=== PATIENT | female | born 1955 | race Caucasian/White ===

== ENCOUNTER 2017-04-10 16:12 | Inpatient (IN) | payer OTHER, BC ==
--- NOTE | 2017-04-10 17:55 | EDPHY ---
H & P Stated Complaint: MRI today L hip;sent to ED re:abnl results.Injury 01/2017 Time Seen by Provider: 04/10/17 16:57 HPI/ROS: CHIEF COMPLAINT: left hip pain HISTORY OF PRESENT ILLNESS: 61-year-old female presents emergency department, sent here after an MRI of her left hip at [facility]. Patient had a worker' s compensation fall at work on February 04 onto her right side, she had right hip pain at that time which has resolved, 1 week after this fall she developed left hip pain which has been worsening since this time. Patient has seen her orthopedist, worker's compensation doctors and worker's compensation orthopedist , she had 1 MRI of her left hip which was read as a stress fracture, she has a another MRI done today and was told to come directly to the emergency department as they told her she had a fracture. Patient reports her left hip pain is not worsening if anything it is mildly improving. She states pain is worse with weight-bearing. She denies any new numbness or tingling in her legs aside from her normal peripheral neuropathy. She denies fevers. REVIEW OF SYSTEMS: A comprehensive 10 point review of systems is otherwise negative aside from elements mentioned in the history of present illness. Source: Patient Exam Limitations: No limitations - Personal History Current Tetanus Diphtheria and Acellular Pertussis (TDAP): Yes Tetanus Vaccine Date: more then 10 y - Medical/Surgical History Hx Asthma: Yes Hx Chronic Respiratory Disease: No Hx Diabetes: Yes Hx Cardiac Disease: No Hx Renal Disease: No Hx Cirrhosis: No Hx Alcoholism: No Hx HIV/AIDS: No Hx Splenectomy or Spleen Trauma: No Other PMH: HTN, high cholesterol, sleep apnea w/CPAP, asthma, DM, hysterectomy. TKR - Social History Smoking Status: Never smoked - Physical Exam Exam: Physical Exam Gen: Alert and Oriented, NAD HEENT: PERRL, moist mucous membranes NECK: no meningismus CV: regular rate and regular rhythm PULM: CTAB, no wheezes ABDOMEN: soft, non tender to palpation, BS present BACK: No CVA tenderness NEURO: Neurologically grossly intact MSK: Left hip with decreased range of motion due to pain, no leg shortening, 2 + pedal pulses, sensation intact to light touch SKIN: no rash or break in skin on exposed skin PSYCH: answers questions appropriately. Constitutional: Initial Vital Signs Temperature (C) 37.1 C 06/16/17 16:20 Heart Rate 84 04/10/17 16:20 Respiratory Rate 18 04/10/17 16:20 Blood Pressure 151/90 H 04/10/17 16:20 O2 Sat (%) 96 04/10/17 16:20 O2 Delivery Mode Room Air Allergies/Adverse Reactions: cephalexin [Cephalexin] Allergy (Mild, Verified 04/10/17 16:30) erythema multiforme hydrochlorothiazide Allergy (Mild, Verified 04/10/17 16:30) Rash Thiazides Allergy (Verified 04/10/17 16:13) diazides Allergy (Uncoded 01/20/11 17:01) Home Medications: Medication Instructions Recorded Acetaminophen [Tylenol ES 500 mg 1,000 mg PO QID PRN 04/10/17 (*)] Albuterol [Proventil Inhaler HFA 1 - 2 puffs IH Q4H PRN 04/10/17 (*)] Aspirin EC [Aspirin EC 81 mg (*)] 81 mg PO DAILY 04/10/17 Atenolol [Tenormin 100 mg (*)] 100 mg PO HS 04/10/17 Calcium Carbonate [Tums 500MG (*)] 500 mg PO TID PRN 04/10/17 Cetirizine [ZyrTEC 10 mg (*)] 10 mg PO DAILY PRN 04/10/17 Diclofenac Sodium [Voltaren Gel 4 gm TP QID PRN 04/10/17 (*)] Docusate Sodium [Colace Clear] 100 mg PO BID 04/10/17 Eflornithine HCl [Vaniqa] 1 gm TP BID 04/10/17 FLUTICASONE/SALMETEROL [ADVAIR HFA 1 puffs IH BID 04/10/17 230-21 MCG INHALER] Famotidine [Pepcid] 40 mg PO DAILY PRN 04/10/17 Fish Oil/Dha/Epa [Fish Oil 1,200 1 each PO BID 04/10/17 mg Fish Oil] Furosemide [Lasix 40 MG (*)] 40 mg PO DAILY 04/10/17 Gemfibrozil [Lopid 600 MG (*)] 600 mg PO BIDAC 04/10/17 Herbals/Supplements -Info Only 1 ea PO DAILY 04/10/17 Hydralazine HCl [Apresoline 100 mg] 100 mg PO TID 04/10/17 LORazepam [Ativan (*)] 0.25 - 0.5 mg PO HS PRN 04/10/17 Lisinopril [Zestril 40 mg (*)] 40 mg PO DAILY 04/10/17 Montelukast Sodium [Singulair 10 10 mg PO HS 04/10/17 mg (*)] Multivitamins [Multivitamin (*)] 1 each PO DAILY 04/10/17 Simvastatin [Zocor] 20 mg PO HS 04/10/17 Terazosin HCl 10 mg PO HS 04/10/17 Vitamin B Complex [B Complex] 1 each PO DAILY 04/10/17 metFORMIN HCL [Metformin HCl] 1,000 mg PO BID 04/10/17 oxyCODONE IR [Oxycodone Ir (*)] 5 - 10 mg PO DAILY PRN 04/10/17 traMADol [Ultram 50 mg (*)] 100 mg PO QID 04/10/17 Medical Decision Making - Diagnostics Imaging Results: Imaging Impressions Hip X-Ray 04/10/17 18:29 Impression: Proximal left femur stress fracture is not visible on radiographs. Comment: The case was discussed with Dr. Robin Hester. Imaging: Discussed imaging studies w/ body recall instructor Radiologist, I viewed and interpreted images myself ED Course/Re-evaluation: MRI report from [facility] shows an impression of incomplete nondisplaced left intertrochanteric proximal femoral fracture with adjacent bone marrow and soft tissue edema. I have spoken with Dr. Lewis who is on-call for Orthopedics, he has reviewed this MRI and requested plain films. He is recommending nonweightbearing. The patient is unsteady on her feet and cannot use crutches, she is stairs in her house. The patient will be admitted to Hospital Medicine for PT/OT and likely rehab placement. Ortho will consult and see the patient. Differential Diagnosis: Diagnosis considered but not limited to fracture, stress fracture, muscle sprain , strain Departure - Departure Disposition: [facility] Inpatient Acute Clinical Impression: Fracture of proximal end of femur Qualifiers: Encounter type: initial encounter Fracture type: closed Laterality: left Qualified Code(s): S72.002A - Fracture of unspecified part of neck of left femur , initial encounter for closed fracture Condition: Good
[2017-04-10] MEDS ORDERED: CETIRIZINE 10 MG TAB PO PRN (20:41)
[2017-04-10] MEDS ORDERED: ALBUTEROL 60 PUFFS/8 GM MDI IH PRN ×2 (20:41→20:43)
[2017-04-10] MEDS ORDERED: FAMOTIDINE 40 MG PO PRN (20:41)
[2017-04-10] MEDS ORDERED: CALCIUM CARBONATE 500 MG CHEWABLE TAB PO PRN (20:41)
[2017-04-10] MEDS ORDERED: DICLOFENAC SODIUM TP PRN ×2 (20:41→20:58)
[2017-04-10] MEDS ORDERED: LORazepam 0.5 MG TAB PO PRN (20:41)
[2017-04-10] MEDS ORDERED: oxyCODONE IR 5 MG TAB PO PRN (20:43)
[2017-04-10] MEDS ORDERED: ONDANSETRON DISINTEGRATING 4 MG TAB PO PRN (20:43)
[2017-04-10] MEDS ORDERED: ONDANSETRON 4 MG/2 ML VIAL IVP PRN (20:43)
--- NOTE | 2017-04-10 20:51 | PDGENHP ---
History and Physical - Chief Complaint told to come to ER bc of MRI - History of Present Illness 61 yo F with hx of osteoarthritis and fall in January that occurred at work and had residual right hip pain that then progressed to left hip pain. The left hip pain began about 1 week after the fall and at that time an MRI revealed a stress fracture of the left intertrochanteric femur. 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 Pain continued to increase and she was sent for another MRI by Dr. Chowdary and when that was read, the radiologist at [facility] instructed her to come straight to the ER. MRI was read as now incomplete nondisplaced intertrochanteric proximal femur fracture and plan would be for her to be completely NWB on that extremity. Patient feels this will be impossible given her chronic knee issues and her right hip pain, she feels she is going to be unable to care for herself at home and will need to be placed in a rehab facility. History Information - Allergies/Home Medication List Allergies/Adverse Reactions: cephalexin [Cephalexin] Allergy (Mild, Verified 04/10/17 16:30) erythema multiforme hydrochlorothiazide Allergy (Mild, Verified 04/10/17 16:30) Rash Thiazides Allergy (Verified 04/10/17 16:13) diazides Allergy (Uncoded 01/20/11 17:01) Home Medications: Acetaminophen [Tylenol ES 500 mg (*)] 1,000 mg PO QID PRN 04/10/17 [Last Taken 04/10/17 14:30 2 TABS] Albuterol [Proventil Inhaler HFA (*)] 1 - 2 puffs IH Q4H PRN 04/10/17 [Last Taken Unknown] Aspirin EC [Aspirin EC 81 mg (*)] 81 mg PO DAILY 04/10/17 [Last Taken 04/10/17] Atenolol [Tenormin 100 mg (*)] 100 mg PO HS 04/10/17 [Last Taken 04/09/17] Calcium Carbonate [Tums 500MG (*)] 500 mg PO TID PRN 04/10/17 [Last Taken Unknown] Cetirizine [ZyrTEC 10 mg (*)] 10 mg PO DAILY PRN 04/10/17 [Last Taken Unknown] Diclofenac Sodium [Voltaren Gel (*)] 4 gm TP QID PRN 04/10/17 [Last Taken Unknown] Docusate Sodium [Colace Clear] 100 mg PO BID 04/10/17 [Last Taken 04/10/17 2 CAPS] Eflornithine HCl [Vaniqa] 1 gm TP BID 04/10/17 [Last Taken Unknown] FLUTICASONE/SALMETEROL [ADVAIR HFA 230-21 MCG INHALER] 1 puffs IH BID 04/10/17 [ Last Taken Unknown] Famotidine [Pepcid] 40 mg PO DAILY PRN 04/10/17 [Last Taken Unknown] Fish Oil/Dha/Epa [Fish Oil 1,200 mg Fish Oil] 1 each PO BID 04/10/17 [Last Taken Unknown] Furosemide [Lasix 40 MG (*)] 40 mg PO DAILY 04/10/17 [Last Taken 04/10/17] Gemfibrozil [Lopid 600 MG (*)] 600 mg PO BIDAC 04/10/17 [Last Taken 04/10/17 1 TAB] Herbals/Supplements -Info Only 1 ea PO DAILY 04/10/17 [Last Taken Unknown] Hydralazine HCl [Apresoline 100 mg] 100 mg PO TID 04/10/17 [Last Taken 04/10/17 2 TABS] LORazepam [Ativan (*)] 0.25 - 0.5 mg PO HS PRN 04/10/17 [Last Taken Unknown] Lisinopril [Zestril 40 mg (*)] 40 mg PO DAILY 04/10/17 [Last Taken 04/10/17] Montelukast Sodium [Singulair 10 mg (*)] 10 mg PO HS 04/10/17 [Last Taken ] Multivitamins [Multivitamin (*)] 1 each PO DAILY 04/10/17 [Last Taken Unknown] Simvastatin [Zocor] 20 mg PO HS 04/10/17 [Last Taken 04/09/17] Terazosin HCl 10 mg PO HS 04/10/17 [Last Taken 04/09/17] Vitamin B Complex [B Complex] 1 each PO DAILY 04/10/17 [Last Taken Unknown] metFORMIN HCL [Metformin HCl] 1,000 mg PO BID 04/10/17 [Last Taken 04/10/17 2 TABS] oxyCODONE IR [Oxycodone Ir (*)] 5 - 10 mg PO DAILY PRN 04/10/17 [Last Taken Unknown] traMADol [Ultram 50 mg (*)] 100 mg PO QID 04/10/17 [Last Taken 04/10/17 14:30 2 TABS] I have personally reviewed and updated: family history, medical history, social history, surgical history - Past Medical History asthma, diabetes type 2, hypertension, hyperlipidemia Additional medical history: osteoarthritis. chronic pain - Surgical History Additional surgical history: right ORIF. tonsillectomy. ARABELLA. left knee scope - Family History Positive for: CAD - Social History Smoking Status: Never smoked Alcohol Use: None Drug Use: None Additional social history: lives alone, works as a pharmacist at [employer] Review of Systems ROS: 10pt was reviewed & negative except for what was stated in HPI & below Physical Exam Temp Pulse Resp BP Pulse Ox 37.1 C 84 18 151/90 H 96 04/10/17 16:20 04/10/17 16:20 04/10/17 16:20 04/10/17 16:20 04/10/17 16:20 Constitutional: obese, uncomfortable Eyes: PERRL, anicteric sclera Ears, Nose, Mouth, Throat: moist mucous membranes Cardiovascular: regular rate and rhythym, no murmur, rub, or gallop, No edema Respiratory: no respiratory distress, no rales or rhonchi, clear to auscultation Gastrointestinal: normoactive bowel sounds, soft, non-tender abdomen Skin: warm, normal color Musculoskeletal: full muscle strength Neurologic: AAOx3 Psychiatric: interacting appropriately, not anxious, flat affect Lab Data & Imaging Review Visualized and Interpreted imaging results: Yes Interpretation: hip xray shows no discernible fracture Assessment & Plan Assessment: Fracture of proximal end of femur (Acute) 61 yo F with hx of DM, HTN and OA presenting 2 months s/p fall with nondisplaced left intertrochanteric femur fx # left femur fx: this is not visible on plain films here but noted on MRI at [facility], non operative injury but patient should be NWB on the left lower extremity per ortho. Patient does not feel she will be able to care for herself at home with this injury, but on evaluation in ER, she is able to independently transfer to a wheelchair quite easily and ? if she could not dc home in a wheelchair rather than require SNF placement. At this point, will bring in for overnight observation and pt/ot eval. Dr. Lewis with ortho has been consulted and will evaluate patient while she is in house. # fall: this occurred at work and is a workman's comp injury, fall was 2 months ago # osteoarthritis: with chronic knee pain as a result limiting her mobility, as above # DM: continue metformin # htn: will continue op meds including lisinopril, lasix, atenolol, hydralazine # hld: continue gemfibrozil # RAD: continue advair, singulair, albuterol--no e/o acute exacerbation # observation status, may be able to dc with wheelchair and home health Patient new to my care. Old records reviewed and summarized as above. Care plan reviewed with ER physician as above.
[2017-04-10] MEDS ORDERED: NON-FORMULARY NEW DRUG (Simvastatin [Zocor] 20 MG) PO SCH (21:00)
[2017-04-10] MEDS ORDERED: NON-FORMULARY NEW DRUG (Fish Oil/Dha/Epa [Fish Oil 1,200 Mg Fish Oil] 1 EACH) PO SCH (21:00)
[2017-04-10] MEDS ORDERED: EFLORNITHINE HCL TP SCH (21:00)
[2017-04-10] MEDS ORDERED: NON-FORMULARY NEW DRUG (Fluticasone/Salmeterol [Advair Hfa 230-21 Mcg Inhaler] 1 PUFFS) IH SCH (21:00)
[2017-04-10] MEDS ORDERED: FAMOTIDINE 20 MG TAB PO PRN (21:00)
[2017-04-10] MEDS ORDERED: TERAZOSIN HCL 10 MG PO SCH (21:00)
[2017-04-10] MEDS ORDERED: DOCUSATE SODIUM 100 MG PO SCH (21:00)
[2017-04-10] MEDS: MONTELUKAST SODIUM 10 MG TAB PO SCH (21:54)
[2017-04-10] MEDS: traMADol 50 MG TAB PO SCH (21:54)
[2017-04-10] MEDS: ATENOLOL 100 MG TAB PO SCH (21:55)
[2017-04-10] MEDS: ACETAMINOPHEN 500 MG TAB PO PRN (21:55)
[2017-04-10] MEDS: metFORMIN HCL 500 MG TAB PO SCH (21:55)
[2017-04-10] MEDS: DOCUSATE SODIUM 100 MG CAP PO SCH (21:56)
[2017-04-10] MEDS ORDERED: HYDRALAZINE HCL 100 MG PO SCH (22:00)
[2017-04-10] MEDS: TERAZOSIN HCL 5 MG CAP PO SCH (22:02)
[2017-04-10] MEDS: EFLORNITHINE HCL TP SCH (22:31)
[2017-04-11] MEDS: traMADol 50 MG TAB PO SCH ×4 (06:00→20:16)
--- NOTE | 2017-04-11 07:46 | PDCONSULT ---
Fish Hatchery Supervisor Note: Orthopaedic Consultation DOS: 04/11/2017 CC: Left hip hurts HPI: 61y F pharmacist w DM2, obesity p/w Left hip pain and MRI findings consistent with incomplete stress fracture. The patient fell in January 2017 and had Right hip pain. After 1.5 weeks or so, the patient developed gradually increasing Left hip pain that started in her groin area and spread distally further down the hip. An initial MRI diagnsosi of stress fracture was made and her L knee arthroplasty surgeon Dr. Chowdary placed her on 25% weightbearing restrictions. Unfortunately, the patient says that her ability to comply with the restriction was "not well". She states she put more than that amount of weight on the leg routinely -including in the bathtub (doesn't use her shower chair), going up the stairs at home, and walking from her car in the [employer] lot to her desk (less than one block). She states that she was unsuccessful in coordinating a disabled placard for parking. She also complains of some Right wrist pain using her walker and of putting more weight on her Right knee which she says has [id number] arthritis like her left knee did. She had a Left TKA last year which was complicated by a patella tendon tear and an extension lag that she has not yet overcome with PT. She was sent to a [facility] comp physician for ongoing care of her hip, she says. We were asked to consult on this patient by the ED (Dr. Shoemaker) and see her on the inpatient floor. PMHx: DM2, Asthma, Sleep apnea, HTN, HLD PSHx: Includes tonsillectomy, AARBELLA, Left total knee arthroplasty Meds: Reviewed. 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 Non smoker, denies EtOH/PSA PE: AxOx3. Hearing intact to spoken word. LLE: no pain with log roll nor PROM hip. Single leg raise not painful. TTP in groin and along proximal femur. Diffuse quadriceps tenderness, pt attributes to knee recovery being incomplete. L knee extension leg ~20 degrees. Passive full extension of knee to 0 degrees. flexion to ~90 degrees. SILT S/S/SP/DP/T. 2+ DP and PT pulse. 5/5 EHL/FHL/TA/GS RLE: no pain with log roll. No TTP. AROM hip to 90 flexion without pain. WWP. grossly sensate to touch IMAGING: radiographs of Left hip visualized and reviewed. No displaced IT fracture, but MRI imaging show IT and substroch signal changes and possible incomplete cortical disruption of the shaft/intertrochanteric region. Degenerative changes of both hip joints, Right worse than left. AP: 61y F pharmacist with DM2, obesity p/w ongoing L hip incomplete stress fracture with incomplete adherence to 25% NWB instructions - Recommend Nonweightbearing status to Left leg. We discussed that the patient may have a better chance of clearly knowing when she is inadvertently "cheating ' since NWB requires the foot off the ground. With her body habitus, the fracture may need complete NWB to improve at this point. We did discuss the higher risks of completing the fracture with additional falls or stress fracture progression. - Recommend PT work with patient on alternative assist strategies to maximize likelihood of adherence. For example, a platform walker where the patient can transmit weight through her Right arm and not the wrist may help further. - If she is sent back to work, a temporary handicap parking placard would help reduce ambulatory distance - When confronted with the multiple aspects of noncompliance, the patient was not particularly distressed and complained about being sent back to work. We discussed the risks of fracture progression that could require hip surgery and would further delay definitive treatment for her right knee as well as complicating any future hip issues. We discussed that work comp patients often do clinically poorer while having healthier financial situations, and I encouraged her to anderson that trend. - She is welcome to follow up with me in a couple weeks to check on her status but she can certainly choose to follow up with Dr. Chowdary who originally was treating this fracture, or she can be treated by her [place] work comp physician. We discussed that her Work comp physician and/or Dr. Chowdary may have a slightly different approach to this problem, and that these recommendations for NWB LLE were what were needed in my opinion.
[2017-04-11] MEDS ORDERED: VITAMIN B COMPLEX 1 EA CAP/TAB PO SCH (09:00)
[2017-04-11] MEDS: SALMETEROL IH SCH (09:50)
[2017-04-11] MEDS: FLUTICASONE IH SCH (09:50)
--- NOTE | 2017-04-11 10:08 | HOSPPROG ---
Hospitalist Progress Note Assessment/Plan: Patient is a 61 y/o female who had hip pain for approximately 1 week. She had an MRI that revealed a stress fracture of the left intertochanteric femur. Was instructed to be 25% NWB but difficult due to needing to walk for her job. # left femur fx: -Evaluated by Dr Lewis/ recommendation is NWB. -patient is concerned she can't care for herself at home -PT and OT to see/ awaiting their recommendations #HTN -lisinopril, Lasix, atenolol, and hydralazine -bp stable # fall: this occurred at work and is a workman's comp injury - fall was 2 months ago # osteoarthritis: with chronic knee pain as a result limiting her mobility, as above # DM: continue metformin # hld: continue gemfibrozil # RAD: continue Advair, Singulair, albuterol--no e/o acute exacerbation # Plan: PT and OT to see today at 11:00/ CM looking at possible SNF if indicated. Subjective: Marianna has no c/o pain while in the chair. Says she is unable to care for herself at home due to being NWB/she lives alone. Objective: Vital Signs Temp Pulse Resp BP Pulse Ox 36.4 C 69 16 130/81 H 89 L 04/11/17 08:40 04/11/17 08:40 04/11/17 08:40 04/11/17 08:40 04/11/17 08:40 04/10/17 04/11/17 04/12/17 05:59 05:59 05:59 Output Total 450 Balance -450 - Physical Exam Constitutional: no apparent distress, appears nourished Eyes: PERRL Ears, Nose, Mouth, Throat: hearing normal Cardiovascular: regular rate and rhythym Respiratory: no respiratory distress Gastrointestinal: normoactive bowel sounds Skin: warm, normal color Neurologic: AAOx3 Psychiatric: interacting appropriately, not anxious ICD10 Worksheet Patient Problems: Problems Problem Status Onset Fracture of proximal end of femur Acute Osteoarthritis of knees, bilateral Acute
[2017-04-11] MEDS: LISINOPRIL 40 MG TAB PO SCH (10:18)
[2017-04-11] MEDS: ASPIRIN EC 81 MG TAB PO SCH (10:18)
[2017-04-11] MEDS: MULTIVITAMINS 1 EACH TAB PO SCH (10:19)
[2017-04-11] MEDS: FUROSEMIDE 40 MG TAB PO SCH (10:19)
[2017-04-11] MEDS: GEMFIBROZIL 600 MG TAB PO SCH ×2 (10:19→18:03)
[2017-04-11] MEDS: VITAMIN B COMPLEX 1 EA CAP/TAB PO SCH (10:19)
[2017-04-11] MEDS: OMEGA-3 FATTY ACIDS 1,000 MG CAP PO SCH ×2 (10:19→20:19)
[2017-04-11] MEDS: metFORMIN HCL 500 MG TAB PO SCH ×2 (10:19→20:16)
[2017-04-11] MEDS: DOCUSATE SODIUM 100 MG CAP PO SCH ×2 (10:19→20:19)
[2017-04-11] MEDS: ENOXAPARIN 40 MG/0.4 ML SYR SC SCH (10:19)
[2017-04-11] MEDS: EFLORNITHINE HCL TP SCH ×2 (10:20→22:39)
[2017-04-11] MEDS: ACETAMINOPHEN 325 MG TAB PO PRN ×2 (10:24→20:19)
[2017-04-11] MEDS: ACETAMINOPHEN 500 MG TAB PO PRN (15:51)
[2017-04-11] MEDS: TERAZOSIN HCL 5 MG CAP PO SCH (20:16)
[2017-04-11] MEDS: ATORVASTATIN CALCIUM 10 MG TAB PO SCH (20:17)
[2017-04-11] MEDS: ATENOLOL 100 MG TAB PO SCH (20:17)
[2017-04-11] MEDS: MONTELUKAST SODIUM 10 MG TAB PO SCH (20:19)
[2017-04-12] MEDS: FLUTICASONE IH SCH ×3 (04:30→22:08)
[2017-04-12] MEDS: SALMETEROL IH SCH ×3 (04:30→22:08)
[2017-04-12] MEDS: traMADol 50 MG TAB PO SCH ×4 (06:19→20:44)
[2017-04-12] MEDS: ACETAMINOPHEN 500 MG TAB PO PRN ×2 (06:19→20:45)
--- NOTE | 2017-04-12 09:55 | HOSPPROG ---
Hospitalist Progress Note Assessment/Plan: Patient is a 61 y/o female who had hip pain for approximately 1 week. She had an MRI that revealed a stress fracture of the left intertochanteric femur. Was instructed to be 25% NWB but difficult due to needing to walk for her job. # left femur fx: -Evaluated by Dr Lewis/ recommendation is NWB. -patient is concerned she can't care for herself at home -PT and OT recommended SNF #HTN -lisinopril, Lasix, atenolol, and hydralazine -bp stable # fall: this occurred at work and is a workman's comp injury - fall was 2 months ago # osteoarthritis: with chronic knee pain as a result limiting her mobility, as above # DM: continue metformin # hld: continue gemfibrozil # RAD: continue Advair, Singulair, albuterol--no e/o acute exacerbation # Plan:CM looking at for placement/ hopefully, Thursday Subjective: Marianna has no c/o pain at rest. Objective: Vital Signs Temp Pulse Resp BP Pulse Ox 36.4 C 75 16 113/68 91 L 04/12/17 08:00 04/12/17 09:35 04/12/17 09:35 04/12/17 08:00 04/12/17 09:35 04/11/17 04/12/17 04/13/17 05:59 05:59 05:59 Intake Total 725 Output Total 200 Balance 525 - Physical Exam Constitutional: not in pain, obese Eyes: PERRL Ears, Nose, Mouth, Throat: hearing normal Cardiovascular: regular rate and rhythym Respiratory: no respiratory distress Gastrointestinal: normoactive bowel sounds Skin: warm, normal color Musculoskeletal: generalized weakness Neurologic: AAOx3 Psychiatric: interacting appropriately ICD10 Worksheet Patient Problems: Problems Problem Status Onset Fracture of proximal end of femur Acute Osteoarthritis of knees, bilateral Acute
[2017-04-12] MEDS: DOCUSATE SODIUM 100 MG CAP PO SCH ×2 (10:28→20:45)
[2017-04-12] MEDS: ASPIRIN EC 81 MG TAB PO SCH (10:28)
[2017-04-12] MEDS: OMEGA-3 FATTY ACIDS 1,000 MG CAP PO SCH ×2 (10:28→20:44)
[2017-04-12] MEDS: FUROSEMIDE 40 MG TAB PO SCH (10:28)
[2017-04-12] MEDS: LISINOPRIL 40 MG TAB PO SCH (10:28)
[2017-04-12] MEDS: GEMFIBROZIL 600 MG TAB PO SCH ×2 (10:28→17:18)
[2017-04-12] MEDS: metFORMIN HCL 500 MG TAB PO SCH ×2 (10:28→20:48)
[2017-04-12] MEDS: MULTIVITAMINS 1 EACH TAB PO SCH (10:29)
[2017-04-12] MEDS: VITAMIN B COMPLEX 1 EA CAP/TAB PO SCH (10:29)
[2017-04-12] MEDS: ENOXAPARIN 40 MG/0.4 ML SYR SC SCH (10:30)
[2017-04-12] MEDS: EFLORNITHINE HCL TP SCH ×2 (10:33→23:23)
[2017-04-12] MEDS: ACETAMINOPHEN 325 MG TAB PO PRN ×2 (11:24→16:25)
[2017-04-12] MEDS: TERAZOSIN HCL 5 MG CAP PO SCH (20:45)
[2017-04-12] MEDS: ATORVASTATIN CALCIUM 10 MG TAB PO SCH (20:45)
[2017-04-12] MEDS: MONTELUKAST SODIUM 10 MG TAB PO SCH (20:45)
[2017-04-12] MEDS: ATENOLOL 100 MG TAB PO SCH (20:48)
[2017-04-13] MEDS: traMADol 50 MG TAB PO SCH ×4 (06:16→21:46)
[2017-04-13] MEDS: ACETAMINOPHEN 500 MG TAB PO PRN ×2 (06:16→21:46)
--- NOTE | 2017-04-13 08:57 | HOSPPROG ---
Hospitalist Progress Note Assessment/Plan: Patient is a 61 y/o female who had hip pain for approximately 1 week. She had an MRI that revealed a stress fracture of the left intertochanteric femur. Was instructed to be 25% NWB but difficult due to needing to walk for her job. # left femur fx: -Evaluated by Dr Lewis/ recommendation is NWB. -patient is concerned she can't care for herself at home -PT and OT recommended SNF #HTN/ hypotensive today -lisinopril, Lasix, atenolol, and hydralazine -bp stable # fall: this occurred at work and is a workman's comp injury - fall was 2 months ago # osteoarthritis: with chronic knee pain as a result limiting her mobility, as above # DM: continue metformin # hld: continue gemfibrozil # RAD: continue Advair, Singulair, albuterol--no e/o acute exacerbation # Plan:CM looking at for placement/ hopefully,soon Subjective: Marianna has some left hip pain as well as right knee pain. Objective: Vital Signs Temp Pulse Resp BP Pulse Ox 36.8 C 68 15 96/51 L 93 04/12/17 23:51 04/12/17 23:51 04/12/17 23:51 04/12/17 23:51 04/12/17 23:51 04/12/17 04/13/17 04/14/17 05:59 05:59 05:59 Intake Total 725 250 Output Total 200 1150 550 Balance 525 -900 -550 - Physical Exam Constitutional: obese, uncomfortable Eyes: PERRL Ears, Nose, Mouth, Throat: hearing normal Cardiovascular: regular rate and rhythym Respiratory: no respiratory distress Skin: warm, normal color Musculoskeletal: generalized weakness Neurologic: AAOx3 Psychiatric: interacting appropriately, not anxious ICD10 Worksheet Patient Problems: Problems Problem Status Onset Fracture of proximal end of femur Acute Osteoarthritis of knees, bilateral Acute
[2017-04-13] MEDS: ENOXAPARIN 40 MG/0.4 ML SYR SC SCH (09:41)
[2017-04-13] MEDS: ASPIRIN EC 81 MG TAB PO SCH (09:44)
[2017-04-13] MEDS: metFORMIN HCL 500 MG TAB PO SCH ×2 (09:46→21:49)
[2017-04-13] MEDS: LISINOPRIL 40 MG TAB PO SCH (09:47)
[2017-04-13] MEDS: VITAMIN B COMPLEX 1 EA CAP/TAB PO SCH (09:47)
[2017-04-13] MEDS: FUROSEMIDE 40 MG TAB PO SCH (09:47)
[2017-04-13] MEDS: DOCUSATE SODIUM 100 MG CAP PO SCH ×2 (09:47→21:46)
[2017-04-13] MEDS: OMEGA-3 FATTY ACIDS 1,000 MG CAP PO SCH ×2 (09:47→21:49)
[2017-04-13] MEDS: MULTIVITAMINS 1 EACH TAB PO SCH (09:48)
[2017-04-13] MEDS: GEMFIBROZIL 600 MG TAB PO SCH ×2 (09:50→17:08)
[2017-04-13] MEDS: EFLORNITHINE HCL TP SCH ×2 (10:02→23:58)
[2017-04-13] MEDS: FLUTICASONE IH SCH ×2 (12:02→21:30)
[2017-04-13] MEDS: SALMETEROL IH SCH ×2 (12:02→21:30)
[2017-04-13] MEDS: ACETAMINOPHEN 325 MG TAB PO PRN (12:40)
[2017-04-13] MEDS: ATENOLOL 100 MG TAB PO SCH (21:46)
[2017-04-13] MEDS: ATORVASTATIN CALCIUM 10 MG TAB PO SCH (21:49)
[2017-04-13] MEDS: MONTELUKAST SODIUM 10 MG TAB PO SCH (21:49)
[2017-04-13] MEDS: TERAZOSIN HCL 5 MG CAP PO SCH (21:50)
[2017-04-14] MEDS: ACETAMINOPHEN 500 MG TAB PO PRN ×4 (06:09→20:45)
[2017-04-14] MEDS: traMADol 50 MG TAB PO SCH ×4 (06:10→20:43)
[2017-04-14] MEDS: FLUTICASONE IH SCH ×2 (09:20→21:51)
[2017-04-14] MEDS: SALMETEROL IH SCH ×2 (09:20→21:51)
[2017-04-14] MEDS: ENOXAPARIN 40 MG/0.4 ML SYR SC SCH (09:47)
[2017-04-14] MEDS: GEMFIBROZIL 600 MG TAB PO SCH ×2 (09:47→17:07)
[2017-04-14] MEDS: FUROSEMIDE 40 MG TAB PO SCH (09:47)
[2017-04-14] MEDS: LISINOPRIL 40 MG TAB PO SCH (09:47)
[2017-04-14] MEDS: VITAMIN B COMPLEX 1 EA CAP/TAB PO SCH (09:47)
[2017-04-14] MEDS: DOCUSATE SODIUM 100 MG CAP PO SCH ×2 (09:47→20:42)
[2017-04-14] MEDS: ASPIRIN EC 81 MG TAB PO SCH (09:47)
[2017-04-14] MEDS: MULTIVITAMINS 1 EACH TAB PO SCH (09:47)
[2017-04-14] MEDS: metFORMIN HCL 500 MG TAB PO SCH ×2 (09:47→20:43)
[2017-04-14] MEDS: OMEGA-3 FATTY ACIDS 1,000 MG CAP PO SCH (09:47)
[2017-04-14] MEDS: EFLORNITHINE HCL TP SCH ×2 (09:48→21:36)
--- NOTE | 2017-04-14 13:15 | HOSPPROG ---
Hospitalist Progress Note Assessment/Plan: Patient is a 61 y/o female who had hip pain for approximately 1 week. She had an MRI that revealed a stress fracture of the left intertochanteric femur. Was instructed to be 25% NWB but difficult due to needing to walk for her job. # left femur fx: -Katrin HUNT reviewed films w Dr Chowdary -plan is for OR on Thursday -will see if she can go to SNF in the meantime -Evaluated by Dr Lewis/ recommendation NWB. -patient is concerned she can't care for herself at home -PT and OT recommended SNF #HTN -lisinopril, Lasix, atenolol, and hydralazine -bp stable # fall: this occurred at work and is a workman's comp injury - fall was 2 months ago # osteoarthritis: with chronic knee pain as a result limiting her mobility, as above # DM: continue metformin # hld: continue gemfibrozil # RAD: continue Advair, Singulair, albuterol--no e/o acute exacerbation # Plan: check labs, could go to [facility] until surgery Subjective: Marianna is not c/o pain during my evaluation. Concerned with recovery from surgery. Objective: Vital Signs Temp Pulse Resp BP Pulse Ox 36.8 C 70 20 125/68 H 94 04/14/17 07:31 04/14/17 07:31 04/14/17 09:21 04/14/17 07:31 04/14/17 09:21 04/13/17 04/14/17 04/15/17 05:59 05:59 05:59 Intake Total 250 250 Output Total 1150 1250 Balance -900 -1000 - Physical Exam Constitutional: obese, uncomfortable Eyes: PERRL Ears, Nose, Mouth, Throat: hearing normal Respiratory: no respiratory distress Skin: warm Musculoskeletal: generalized weakness Neurologic: AAOx3 Psychiatric: interacting appropriately, not anxious ICD10 Worksheet Patient Problems: Problems Problem Status Onset Fracture of proximal end of femur Acute Osteoarthritis of knees, bilateral Acute
--- NOTE | 2017-04-14 15:02 | PDCONSULT ---
Green Chain Offbearer Note: HPI: Marianna is a 61y/o female who has been followed by us on an outpatient basis for left femoral neck stress fracture and pubic symphysis fracture. She has been under guidelines of 25% weight bearing and initially had some improvement in her symptoms. Unfortunately, last week her pain became more severe and follow -up imaging was recommended by her worker's compensation provider. Imaging showed worsening fracture and it was recommended she go to the ER. She has been admitted under the internal medicine service and has been NWB and working with PT/OT. Marianna states she continues to have left hip pain. ROS: left hip pain PE: NAD, well appearing, no distress EOMi, face symmetric MAEx4 LLE neurovascularly intact; dorsiflexion/plantarflexion 5/5 left lateral hip TTP Imaging: MRI shows worsening of stress fracture when compared to prior MRI. Both images were reviewed with Dr. Chowdary. A/P: 61y/o female with worsening femur fracture. I discussed options with Marianna and that Dr. Chowdary recommends surgical intervention. Marianna is at high risk for fall and without surgery, we are concerned this could result in a prominent hip fracture. We discussed the surgery and Marianna has had the opportunity to discuss with Dr. Chowdary as well. She would like to proceed. Risks and benefits of surgery discussed, patient was consented for surgery. We will plan for surgery on Thursday. We will hold her Lovenox after her Thursday dose if she is still in house. All questions answered, patient in agreement and understanding of plan.
[2017-04-14 16:11] LABS: % IMMATURE GRANULYOCYTES 0.4 % (0.0-1.1); ABSOLUTE IMMATURE GRANULOCYTES 0.03 10^3/uL (0.00-0.10); ADD DIFF? NO; ADD MORPH? NO; ADD SCAN? NO; ATYPICAL LYMPHOCYTE FLAG 0 (0-99); FRAGMENT RBC FLAG 0 (0-99); HEMATOCRIT 38.4 % (38.0-47.0); HEMOGLOBIN 13.1 g/dL (12.6-16.3); LEFT SHIFT FLG 0 (0-99); LIPEMIA HEMOLYSIS FLAG 90 (0-99); MEAN CELL HEMOGLOBIN 32.1 pg (27.9-34.1); MEAN CELL HEMOGLOBIN CONCENTR. 34.1 g/dL (32.4-36.7); MEAN CELL VOLUME 94.1 fL (81.5-99.8); MEAN PLATELET VOLUME 10.2 fL (8.7-11.7); PLATELET CLUMPS FLAG 0 (0-99); PLATELET COUNT 340 10^3/uL (150-400); RED BLOOD CELL COUNT 4.08 10^6/uL (4.18-5.33); RED CELL DISTRIBUTION WIDTH 12.8 % (11.5-15.2)
[2017-04-14 16:21] LABS: ALANINE AMINOTRANSFERASE 40 IU/L (9-52); ALBUMIN 4.9 g/dL (3.5-5.0); ALKALINE PHOSPHATASE 82 IU/L (38-126); ANION GAP 17 mEq/L (8-16); ASPARTATE AMINOTRANSFERASE 24 IU/L (14-46); BILIRUBIN,TOTAL 0.5 mg/dL (0.1-1.4); CALCIUM 10.4 mg/dL (8.5-10.4); CARBON DIOXIDE 21 mEq/l (22-31); CHLORIDE 102 mEq/L (97-110); CREATININE 0.8 mg/dL (0.6-1.0); GLOMERULAR FILTRATION RATE > 60; GLUCOSE 147 mg/dL (70-100); POTASSIUM 3.7 mEq/L (3.5-5.2); SODIUM 140 mEq/L (134-144); TOTAL PROTEIN 7.5 g/dL (6.3-8.2)
[2017-04-14] MEDS: MONTELUKAST SODIUM 10 MG TAB PO SCH (20:42)
[2017-04-14] MEDS: ATENOLOL 100 MG TAB PO SCH (20:42)
[2017-04-14] MEDS: ATORVASTATIN CALCIUM 10 MG TAB PO SCH (20:42)
[2017-04-14] MEDS: CALCIUM CARB W/VIT D 500 MG TAB PO SCH (20:42)
[2017-04-14] MEDS: TERAZOSIN HCL 5 MG CAP PO SCH (20:43)
[2017-04-14 22:35] VITALS: O2SAT 94
[2017-04-15] MEDS: traMADol 50 MG TAB PO SCH ×2 (05:37→12:01)
[2017-04-15 07:54] VITALS: BP 136/81; PULSE 66; RESP 14; TEMP 97.5
[2017-04-15] MEDS: FUROSEMIDE 40 MG TAB PO SCH (08:46)
[2017-04-15] MEDS: LISINOPRIL 40 MG TAB PO SCH (08:46)
[2017-04-15] MEDS: MULTIVITAMINS 1 EACH TAB PO SCH (08:47)
[2017-04-15] MEDS: DOCUSATE SODIUM 100 MG CAP PO SCH (08:47)
[2017-04-15] MEDS: metFORMIN HCL 500 MG TAB PO SCH (08:47)
[2017-04-15] MEDS: GEMFIBROZIL 600 MG TAB PO SCH (08:47)
[2017-04-15] MEDS: ENOXAPARIN 40 MG/0.4 ML SYR SC SCH (08:47)
[2017-04-15] MEDS: VITAMIN B COMPLEX 1 EA CAP/TAB PO SCH (08:47)
--- NOTE | 2017-04-15 08:47 | HOSPPROG ---
Hospitalist Progress Note Assessment/Plan: Patient is a 61 y/o female who had hip pain for approximately 1 week. She had an MRI that revealed a stress fracture of the left intertochanteric femur. Was instructed to be 25% NWB but difficult due to needing to walk for her job. # left femur fx: -Katrin HUNT reviewed films w Dr Chowdary -plan is for OR on Thursday -will see if she can go to SNF in the meantime -Evaluated by Dr Lewis/ recommendation NWB. -patient is concerned she can't care for herself at home -PT and OT recommended SNF #HTN -lisinopril, Lasix, atenolol, and hydralazine -bp stable #constipation -bowel protocol # fall: this occurred at work and is a workman's comp injury - fall was 2 months ago # osteoarthritis: with chronic knee pain as a result limiting her mobility, as above # DM: continue metformin # hld: continue gemfibrozil # RAD: continue Advair, Singulair, albuterol--no e/o acute exacerbation # Plan: EKG today for pre-op clearance/ awaiting to see if she can go to , if not, will stay here till surgery. Subjective: Marianna has ongoing right knee pain and left hip pain. Objective: Vital Signs Temp Pulse Resp BP Pulse Ox 36.4 C 66 14 136/81 H 94 04/15/17 07:48 04/15/17 07:48 04/15/17 07:48 04/15/17 07:48 04/15/17 07:48 Laboratory Results 04/14/17 15:45 04/14/17 15:45 04/14/17 04/15/17 04/16/17 05:59 05:59 05:59 Intake Total 250 375 Output Total 1250 450 Balance -1000 -75 - Physical Exam Constitutional: no apparent distress Eyes: PERRL Ears, Nose, Mouth, Throat: hearing normal Cardiovascular: regular rate and rhythym, no murmur, rub, or gallop Respiratory: no respiratory distress Gastrointestinal: normoactive bowel sounds, distension (slight) Skin: warm Musculoskeletal: muscular tenderness, generalized weakness Neurologic: AAOx3 Psychiatric: interacting appropriately ICD10 Worksheet Patient Problems: Problems Problem Status Onset Fracture of proximal end of femur Acute Osteoarthritis of knees, bilateral Acute
[2017-04-15] MEDS: CALCIUM CARB W/VIT D 500 MG TAB PO SCH (08:51)
[2017-04-15] MEDS: ACETAMINOPHEN 500 MG TAB PO PRN (08:51)
[2017-04-15] MEDS: EFLORNITHINE HCL TP SCH (08:53)
[2017-04-15] MEDS ORDERED: BISACODYL 10 MG SUPP PR PRN (09:22)
[2017-04-15] MEDS ORDERED: LACTULOSE 20 GM/30 ML UDCUP PO PRN (09:22)
[2017-04-15] MEDS ORDERED: MAGNESIUM HYDROXIDE 30 ML UDCUP PO PRN (09:22)
[2017-04-15] MEDS ORDERED: POLYETHYLENE GLYCOL 3350 17 GM PKT PO SCH (09:30)
--- NOTE | 2017-04-15 09:42 | CPEKG ---
Heart Rate: 64 RR Interval: 938 P-R Interval: 176 QRSD Interval: 88 QT Interval: 396 QTC Interval: 409 P [place]: 39 QRS [place]: -19 T Wave [place]: 28 EKG Severity - OTHERWISE NORMAL ECG - EKG Impression: SINUS RHYTHM EKG Impression: BORDERLINE LEFT AXIS DEVIATION Electronically Signed By: Zhou Gomez 15-Apr-2017 11:59:27
[2017-04-15] MEDS: FLUTICASONE IH SCH (10:51)
[2017-04-15] MEDS: SALMETEROL IH SCH (10:51)
--- NOTE | 2017-04-15 12:22 | PDIAF ---
- Diagnosis Diagnosis: left femur fracuture Code Status: Full Code - Medication Management Discharge Medications: Medications to Continue on Transfer Acetaminophen [Tylenol ES 500 mg (*)] 1,000 mg PO QID PRN 04/10/17 [Last Taken 04/10/17 14:30 2 TABS] Albuterol [Proventil Inhaler HFA (*)] 1 - 2 puffs IH Q4H PRN 04/10/17 [Last Taken Unknown] Atenolol [Tenormin 100 mg (*)] 100 mg PO HS 04/10/17 [Last Taken 04/09/17] Calcium Carbonate [Tums 500MG (*)] 500 mg PO TID PRN 04/10/17 [Last Taken Unknown] Cetirizine [ZyrTEC 10 mg (*)] 10 mg PO DAILY PRN 04/10/17 [Last Taken Unknown] Diclofenac Sodium [Voltaren Gel (*)] 4 gm TP QID PRN 04/10/17 [Last Taken Unknown] Docusate Sodium [Colace Clear] 100 mg PO BID 04/10/17 [Last Taken 04/10/17 2 CAPS] Eflornithine HCl [Vaniqa] 1 gm TP BID 04/10/17 [Last Taken Unknown] FLUTICASONE/SALMETEROL [ADVAIR HFA 230-21 MCG INHALER] 1 puffs IH BID 04/10/17 [ Last Taken Unknown] Famotidine [Pepcid] 40 mg PO DAILY PRN 04/10/17 [Last Taken Unknown] Fish Oil/Dha/Epa [Fish Oil 1,200 mg Fish Oil] 1 each PO BID 04/10/17 [Last Taken Unknown] Furosemide [Lasix 40 MG (*)] 40 mg PO DAILY 04/10/17 [Last Taken 04/10/17] Gemfibrozil [Lopid 600 MG (*)] 600 mg PO BIDAC 04/10/17 [Last Taken 04/10/17 1 TAB] Herbals/Supplements -Info Only 1 ea PO DAILY 04/10/17 [Last Taken Unknown] Hydralazine HCl [Apresoline 100 mg] 100 mg PO TID 04/10/17 [Last Taken 04/10/17 2 TABS] LORazepam [Ativan (*)] 0.25 - 0.5 mg PO HS PRN 04/10/17 [Last Taken Unknown] Lisinopril [Zestril 40 mg (*)] 40 mg PO DAILY 04/10/17 [Last Taken 04/10/17] Montelukast Sodium [Singulair 10 mg (*)] 10 mg PO HS 04/10/17 [Last Taken ] Multivitamins [Multivitamin (*)] 1 each PO DAILY 04/10/17 [Last Taken Unknown] Simvastatin [Zocor] 20 mg PO HS 04/10/17 [Last Taken 04/09/17] Terazosin HCl 10 mg PO HS 04/10/17 [Last Taken 04/09/17] Vitamin B Complex [B Complex] 1 each PO DAILY 04/10/17 [Last Taken Unknown] metFORMIN HCL [Metformin HCl] 1,000 mg PO BID 04/10/17 [Last Taken 04/10/17 2 TABS] oxyCODONE IR [Oxycodone Ir (*)] 5 - 10 mg PO DAILY PRN 04/10/17 [Last Taken Unknown] traMADol [Ultram 50 mg (*)] 100 mg PO QID 04/10/17 [Last Taken 04/10/17 14:30 2 TABS] Aspirin EC [Aspirin EC 81 mg (*)] 81 mg PO DAILY tab 04/15/17 [Last Taken Unknown] Calcium Carb W/Vit D [Calcium Carb W/Vit D 500/200 (*)] 500 mg PO BID tab 04/15 [Last Taken Unknown] Enoxaparin [Lovenox 40 MG (*)] 40 mg SC DAILY syr 04/15/17 [Last Taken Unknown] Polyethylene Glycol 3350 [Miralax 17 gm (*)] 17 gm PO DAILY pkt 04/15/17 [Last Taken Unknown] Sennosides/Docusate Sodium [Senokot-S] 1 - 2 tab PO BID tab 04/15/17 [Last Taken Unknown] oxyCODONE IR [Oxycodone Ir (*)] 5 - 10 mg PO Q3HRS PRN #0 tab 04/15/17 [Last Taken Unknown] Discharge Medications: Refer to the Discharge Home Medication list for PRN reason. - Orders Services needed: Physical Therapy, Occupational Therapy Diet Recommendation: no restrictions on diet Activity/Weight Bearing Restrictions: NWB to left lower ext Additional: aspirin has been stopped due to surgery on Thursday. STOP LOVENOX AFTER THURSDAY'S DOSE 04/18. SURGERY IS SCHEDULED FOR THURSDAY MORNING/ NPO AFTER MIDNIGHT ON THURSDAY. - Follow Up Care Current Providers and Referrals: Ivon Chen MD [Primary Care Provider] - As per Instructions Camilla Chowdary MD [Medical Doctor] -
--- NOTE | 2017-04-15 19:30 | GDS ---
[f rep st] DISCHARGE SUMMARY DISCHARGE DIAGNOSES: 1. Left hip/femur fracture. 2. Hypertension. 3. Constipation. 4. Gait instability resulting in a fall. 5. Osteoarthritis. 6. Diabetes mellitus. 7. Hyperlipidemia. 8. Reactive airway disease. CONSULTATIONS: During her stay: 1. Eduardo Lewis MD. 2. Katrin Buenrostro, PAC, with Camilla Chowdary MD. HISTORY OF PRESENT ILLNESS: Briefly, the patient is a 61-year-old female who has diabetes, type 2, who presented to the emergency room with left hip pain. Her MRI findings were consistent with an incomplete stress fracture. She fell in January, and had right hip pain. After approximately a [id number], the pain started increasing on the left, starting in her groin area, and spread distally further down the hip. An initial MRI diagnosed a stress fracture was made, and she was placed on 25% weightbearing restrictions. It was difficult for her to maintain this, in the setting that she was working. Subsequently, Katrin Buenrostro, Physician Hot Worker, with Dr. Chowdary, came by to further evaluate the patient. They were concerned that she has worsening femur fracture , and recommended surgery. The plan [facility]. She will return Thursday morning for surgery with Dr. Chowdary on Thursday morning. HOSPITAL COURSE: 1. Left femur fracture. Plan is for OR on Thursday. In the meantime, to be nonweightbearing. It has been difficult for her to maintain getting in and out of bed without significant help due to significant osteoarthritis in her right knee area. 2. Hypertension, stable. 3. Constipation. Placed on bowel protocol. 4. Fall. 5. Osteoarthritis, impacting the above. 6. Diabetes, type 2, on metformin. 7. Hyperlipidemia, on gemfibrozil. 8. Reactive airway disease, on Advair and Singulair, and albuterol p.r.n. PENDING LABS AND TESTS: None. CONDITION AT DISCHARGE: Stable. Blood pressure is 136/81, heart rate is 66, respiratory rate is 14, temperature 36.4 Celsius, O2 saturations on room air are 93%. DISCHARGE INSTRUCTIONS: 1. To hold the aspirin, in the setting of having surgery. 2. To be nonweightbearing. 3. To return to [facility] Thursday at 6 a.m. for surgery. Greater than 30 minutes discharging and coordinating care. /[id number]/MODL MTDD
[2017-04-15] MEDS ORDERED: SENNOSIDES/DOCUSATE SODIUM TAB PO SCH (21:00)
== END 2017-04-15 14:10 | DRG 544 ==
LOC: INTOOBSV 20:43 → OBSVTOIN 20:43 → F3E 21:00 → OBSVTOIN 04-11 14:09
PROVIDERS: ADMIT Internal Medicine; ATTEND Hospitalist
DX: M84.352A Stress fracture, left femur, initial encounter for fracture (principal); E11.9 Type 2 diabetes mellitus without complications; E66.9 Obesity, unspecified; I10 Essential (primary) hypertension; E78.5 Hyperlipidemia, unspecified; J45.909 Unspecified asthma, uncomplicated; K59.00 Constipation, unspecified; R26.81 Unsteadiness on feet; Z96.652 Presence of left artificial knee joint
CPT/HCPCS: 97110-GP; 97116-GP; 97162-GP; 97165-GO; 97530-GP; 97535-GO; G0378; J1650; J2405

== ENCOUNTER 2017-04-20 05:41 | Inpatient (IN) | payer OTHER, BC ==
[~2017-04-20 05:41] MED LIST: CLINDAMYCIN 900 MG/DEXTROSE 50 ML IV ONE; LR 1,000 ML IV SCH
[2017-04-20] MEDS ORDERED: CLINDAMYCIN 900 MG/DEXTROSE 50 ML IV ONE (06:00)
[2017-04-20] MEDS ORDERED: LR 1,000 ML IV ONE ×2 (06:00→06:09)
[2017-04-20] MEDS ORDERED: LIDOCAINE 1% 2 ML INJ ONE (06:10)
[2017-04-20] MEDS ORDERED: BUPIVACAINE/EPI 0.5% 30 ML SDV ONE (06:45)
[2017-04-20] MEDS ORDERED: BACITRACIN 50,000 UNITS/10 ML SYR IRR ONE (06:46)
[2017-04-20] MEDS ORDERED: POLYMYXIN B SULFATE 500,000 UNIT/10 ML SYR IRR ONE (06:46)
[2017-04-20] MEDS: LIDOCAINE 1% 2 ML INJ ID PRN ×2 (06:46→07:16)
[2017-04-20] MEDS ORDERED: MIDAZOLAM 2 MG/2 ML VIAL IVP ONE (07:04)
[2017-04-20] MEDS ORDERED: MIDAZOLAM 2 MG/2 ML VIAL ONE (07:05)
--- NOTE | 2017-04-20 07:08 | PDHPUP ---
History & Physical Update H&P update statement: This history and physical update is based on an assessment of the patient which was completed after admission or registration (within 24 hours), but prior to the surgery/procedure. H&P update: H&P reviewed & patient examined, no change in patient's condition since H&P completed
[2017-04-20] MEDS ORDERED: PROPOFOL 200 MG/20 ML VIAL ONE (07:11)
[2017-04-20] MEDS ORDERED: fentaNYL 100 MCG/2 ML INJ ONE ×3 (07:11→10:03)
[2017-04-20] MEDS ORDERED: LIDOCAINE 2% 5 ML SDV ONE (07:13)
--- NOTE | 2017-04-20 07:24 | PDANEPAE ---
ANE History of Present Illness Left Trochanteric fracture ANE Past Medical History - Cardiovascular History Hx Hypertension: Yes Hx Arrhythmias: No Hx Chest Pain: No Hx Coronary Artery / Peripheral Vascular Disease: No Hx CHF / Valvular Disease: No Hx Palpitations: No - Pulmonary History Hx COPD: No Hx Asthma/Reactive Airway Disease: Yes Hx Recent Upper Respiratory Infection: No Hx Oxygen in Use at Home: Yes - Neurologic History Hx Cerebrovascular Accident: No Hx Seizures: No Hx Dementia: No - Endocrine History Hx Diabetes: Yes - Renal History Hx Renal Disorders: No - Liver History Hx Hepatic Disorders: No - Neurological & Psychiatric Hx Hx Neurological and Psychiatric Disorders: No - Cancer History Hx Cancer: No - Congenital Disorder History Hx Congenital Disorders: No - GI History Hx Gastrointestinal Disorders: No - Chronic Pain History Chronic Pain: Yes ANE Patient History - Allergies Allergies/Adverse Reactions: cephalexin [Cephalexin] Allergy (Mild, Verified 04/10/17 16:30) erythema multiforme hydrochlorothiazide Allergy (Mild, Verified 04/10/17 16:30) Rash Thiazides Allergy (Verified 04/10/17 16:13) diazides Allergy (Uncoded 01/20/11 17:01) - Home Medications Home medications: home medication list seen and reviewed Home Medications: Acetaminophen [Tylenol ES 500 mg (*)] 1,000 mg PO QID PRN 04/10/17 [Last Taken 04/19/17] Albuterol [Proventil Inhaler HFA (*)] 1 - 2 puffs IH Q4H PRN 04/10/17 [Last Taken 04/06/17] Atenolol [Tenormin 100 mg (*)] 100 mg PO HS 04/10/17 [Last Taken 04/19/17] Calcium Carbonate [Tums 500MG (*)] 500 mg PO TID PRN 04/10/17 [Last Taken Unknown] Cetirizine [ZyrTEC 10 mg (*)] 10 mg PO DAILY PRN 04/10/17 [Last Taken Unknown] Diclofenac Sodium 1% [Voltaren Gel (*)] 4 gm TP QID PRN 04/10/17 [Last Taken Unknown] Docusate Sodium [Colace Clear] 100 mg PO BID 04/10/17 [Last Taken 04/19/17] Eflornithine HCl [Vaniqa] 1 gm TP BID 04/10/17 [Last Taken 04/08/17] FLUTICASONE/SALMETEROL [ADVAIR HFA 230-21 MCG INHALER] 1 puffs IH BID 04/10/17 [ Last Taken 04/19/17 18:00] Famotidine [Pepcid] 40 mg PO DAILY PRN 04/10/17 [Last Taken Unknown] Fish Oil/Dha/Epa [Fish Oil 1,200 mg Fish Oil] 1 each PO BID 04/10/17 [Last Taken 04/18/17] Furosemide [Lasix 40 MG (*)] 40 mg PO DAILY 04/10/17 [Last Taken 04/19/17 08:00] Gemfibrozil [Lopid 600 MG (*)] 600 mg PO BIDAC 04/10/17 [Last Taken 04/19/17 18: 00] Herbals/Supplements -Info Only 1 ea PO DAILY 04/10/17 [Last Taken Unknown] Hydralazine HCl [Apresoline 100 mg] 100 mg PO TID 04/10/17 [Last Taken 04/19/17 20:00] LORazepam [Ativan (*)] 0.25 - 0.5 mg PO HS PRN 04/10/17 [Last Taken 04/19/17 21: 00] Lisinopril [Zestril 40 mg (*)] 40 mg PO DAILY 04/10/17 [Last Taken 04/19/17] Montelukast Sodium [Singulair 10 mg (*)] 10 mg PO HS 04/10/17 [Last Taken ] Multivitamins [Multivitamin (*)] 1 each PO DAILY 04/10/17 [Last Taken 04/19/17] Simvastatin [Zocor] 20 mg PO HS 04/10/17 [Last Taken 04/19/17] Terazosin HCl 10 mg PO HS 04/10/17 [Last Taken 04/19/17] Vitamin B Complex [B Complex] 1 each PO DAILY 04/10/17 [Last Taken 04/19/17] metFORMIN HCL [Metformin HCl] 1,000 mg PO BID 04/10/17 [Last Taken 04/19/17] oxyCODONE IR [Oxycodone Ir (*)] 5 - 10 mg PO DAILY PRN 04/10/17 [Last Taken Unknown] traMADol [Ultram 50 mg (*)] 100 mg PO QID 04/10/17 [Last Taken 04/19/17 23:30] - NPO status NPO Since - Liquids (Date): 04/19/17 NPO Since - Liquids (Time): 23:30 NPO Since - Solids (Date): 04/19/17 NPO Since - Solids (Time): 19:00 - Anes Hx Anes Hx: no prior problems (Had failed block ) - Smoking Hx Smoking Status: Never smoked - Family Anes Hx Family Anes Hx: neg - N/A Family Hx Anesthesia Complications: NEG ANE Labs/Vital Signs - Vital Signs Blood Pressure: 122/70 Heart Rate: 71 Respiratory Rate: 20 O2 Sat (%): 92 ANE Physical Exam - Airway Neck exam: short neck (Limited flex/ext) Mallampati Score: Class 3 Mouth exam: small mouth opening - Cardiovascular Cardiovascular: regular rate and rhythym - ASA Status ASA Status: III ANE Anesthesia Plan Anesthesia Plan: general endotracheal anesthesia
[2017-04-20] MEDS ORDERED: PHENYLEPHRINE HCL 100 MCG/ML SYR ONE (07:48)
[2017-04-20] MEDS ORDERED: epHEDrine SULFATE 10 MG/ML SYR ONE (07:48)
--- NOTE | 2017-04-20 07:50 | PDANEPAE ---
ANE Past Medical History - Cardiovascular History Hx Hypertension: Yes Hx Arrhythmias: No Hx Chest Pain: No Hx Coronary Artery / Peripheral Vascular Disease: No Hx CHF / Valvular Disease: No Hx Palpitations: No - Pulmonary History Hx COPD: No Hx Asthma/Reactive Airway Disease: Yes Hx Recent Upper Respiratory Infection: No Hx Oxygen in Use at Home: Yes - Neurologic History Hx Cerebrovascular Accident: No Hx Seizures: No Hx Dementia: No - Endocrine History Hx Diabetes: Yes - Renal History Hx Renal Disorders: No - Liver History Hx Hepatic Disorders: No - Neurological & Psychiatric Hx Hx Neurological and Psychiatric Disorders: No - Cancer History Hx Cancer: No - Congenital Disorder History Hx Congenital Disorders: No - GI History Hx Gastrointestinal Disorders: No - Chronic Pain History Chronic Pain: Yes ANE Patient History - Allergies Allergies/Adverse Reactions: cephalexin [Cephalexin] Allergy (Mild, Verified 04/10/17 16:30) erythema multiforme hydrochlorothiazide Allergy (Mild, Verified 04/10/17 16:30) Rash Thiazides Allergy (Verified 04/10/17 16:13) diazides Allergy (Uncoded 01/20/11 17:01) - Home Medications Home Medications: Acetaminophen [Tylenol ES 500 mg (*)] 1,000 mg PO QID PRN 04/10/17 [Last Taken 04/10/17 14:30 2 TABS] Albuterol [Proventil Inhaler HFA (*)] 1 - 2 puffs IH Q4H PRN 04/10/17 [Last Taken Unknown] Atenolol [Tenormin 100 mg (*)] 100 mg PO HS 04/10/17 [Last Taken 04/09/17] Calcium Carbonate [Tums 500MG (*)] 500 mg PO TID PRN 04/10/17 [Last Taken Unknown] Cetirizine [ZyrTEC 10 mg (*)] 10 mg PO DAILY PRN 04/10/17 [Last Taken Unknown] Diclofenac Sodium 1% [Voltaren Gel (*)] 4 gm TP QID PRN 04/10/17 [Last Taken Unknown] Docusate Sodium [Colace Clear] 100 mg PO BID 04/10/17 [Last Taken 04/10/17 2 CAPS] Eflornithine HCl [Vaniqa] 1 gm TP BID 04/10/17 [Last Taken Unknown] FLUTICASONE/SALMETEROL [ADVAIR HFA 230-21 MCG INHALER] 1 puffs IH BID 04/10/17 [ Last Taken Unknown] Famotidine [Pepcid] 40 mg PO DAILY PRN 04/10/17 [Last Taken Unknown] Fish Oil/Dha/Epa [Fish Oil 1,200 mg Fish Oil] 1 each PO BID 04/10/17 [Last Taken Unknown] Furosemide [Lasix 40 MG (*)] 40 mg PO DAILY 04/10/17 [Last Taken 04/10/17] Gemfibrozil [Lopid 600 MG (*)] 600 mg PO BIDAC 04/10/17 [Last Taken 04/10/17 1 TAB] Herbals/Supplements -Info Only 1 ea PO DAILY 04/10/17 [Last Taken Unknown] Hydralazine HCl [Apresoline 100 mg] 100 mg PO TID 04/10/17 [Last Taken 04/10/17 2 TABS] LORazepam [Ativan (*)] 0.25 - 0.5 mg PO HS PRN 04/10/17 [Last Taken Unknown] Lisinopril [Zestril 40 mg (*)] 40 mg PO DAILY 04/10/17 [Last Taken 04/10/17] Montelukast Sodium [Singulair 10 mg (*)] 10 mg PO HS 04/10/17 [Last Taken ] Multivitamins [Multivitamin (*)] 1 each PO DAILY 04/10/17 [Last Taken Unknown] Simvastatin [Zocor] 20 mg PO HS 04/10/17 [Last Taken 04/09/17] Terazosin HCl 10 mg PO HS 04/10/17 [Last Taken 04/09/17] Vitamin B Complex [B Complex] 1 each PO DAILY 04/10/17 [Last Taken Unknown] metFORMIN HCL [Metformin HCl] 1,000 mg PO BID 04/10/17 [Last Taken 04/10/17 2 TABS] oxyCODONE IR [Oxycodone Ir (*)] 5 - 10 mg PO DAILY PRN 04/10/17 [Last Taken Unknown] traMADol [Ultram 50 mg (*)] 100 mg PO QID 04/10/17 [Last Taken 04/10/17 14:30 2 TABS] - NPO status NPO Since - Liquids (Date): 04/19/17 NPO Since - Liquids (Time): 23:30 NPO Since - Solids (Date): 04/19/17 NPO Since - Solids (Time): 19:00 - Smoking Hx Smoking Status: Never smoked - Family Anes Hx Family Hx Anesthesia Complications: NEG ANE Labs/Vital Signs - Vital Signs Blood Pressure: 122/70 Heart Rate: 71 Respiratory Rate: 20 O2 Sat (%): 92
[2017-04-20] MEDS ORDERED: ROCURONIUM 50 MG/5 ML VIAL ONE (08:06)
[2017-04-20] MEDS ORDERED: DEXAMETHASONE 4 MG/ML VIAL ONE (08:07)
[2017-04-20] MEDS ORDERED: SUGAMMADEX SODIUM 200 MG/2 ML VIAL IVP ONE (08:07)
[2017-04-20] MEDS ORDERED: ONDANSETRON 4 MG/2 ML VIAL ONE (08:07)
[2017-04-20] MEDS ORDERED: GLYCOPYRROLATE 0.2 MG/1 ML VIAL ONE (08:46)
[2017-04-20] MEDS ORDERED: ONDANSETRON 4 MG/2 ML VIAL IVP PRN ×2 (09:04→10:10)
[2017-04-20] MEDS ORDERED: PROMETHAZINE HCL 25 MG/ML INJ IVP PRN ×2 (09:04→10:10)
[2017-04-20] MEDS ORDERED: ALBUTEROL 3 ML DEYVIAL IH PRN (09:04)
[2017-04-20] MEDS ORDERED: HYDROmorphONE/DILAUDID 1 MG/ML SYR IVP PRN ×3 (09:04→12:07)
[2017-04-20] MEDS ORDERED: NALOXONE HCL 0.4 MG/ML INJ IVP PRN (09:04)
[2017-04-20] MEDS ORDERED: HYDROmorphONE/DILAUDID 1 MG/ML SYR ONE ×2 (10:03→11:02)
[2017-04-20] MEDS: fentaNYL 100 MCG/2 ML INJ IVP PRN ×2 (10:05→10:12)
[2017-04-20] MEDS ORDERED: D5W 1/2 NS W/ 20 KCl/L 1,000 ML IV SCH (10:15)
[2017-04-20] MEDS: HYDROmorphONE/DILAUDID 1 MG/ML SYR IVP PRN ×4 (10:18→11:41)
--- NOTE | 2017-04-20 10:31 | POSTOPPROG ---
Post Op Note Date of Operation: 04/20/17 Surgeon: Camilla Chowdary Blasting Clay Miner: Katrin Buenrostro PA-C Anesthesiologist: Dr. Rodriguez Anesthesia: GET(General Endotracheal) Pre-op Diagnosis: left hip fracture Post-op Diagnosis: left hip fracture Indication: ongoing left hip pain and worsening fracture Procedure: left hip ORIF Inf/Abcess present in the surg proc area at time of surgery?: No EBL: 100-500 Complications: none
--- NOTE | 2017-04-20 10:35 | SOAPPROG ---
SOAP Progress Note Assessment/Plan: Assessment/Plan: 61y/o female s/p left hip joi placement for fracture - pain medications as ordered - WBAT - walker for stabilization - Lovenox and ASA start tomorrow; TEDs/SCDs - will consult medicine for aid in management of medical issues, appreciate their care - PT/OT - call with issues or concerns 04/20/17 10:32 Subjective: Having hip pain Objective: Vital Signs Temp Pulse Resp BP Pulse Ox 36.6 C 71 20 122/70 H 97 04/20/17 09:49 04/20/17 08:01 04/20/17 08:01 04/20/17 08:01 04/20/17 10:17 NAD, mild distress due to pain EOMi, face symmetric MAEx4 incisions clean, dressed ICD10 Worksheet Patient Problems: Problems Problem Status Onset Fracture of proximal end of femur Acute Osteoarthritis of knees, bilateral Acute
--- NOTE | 2017-04-20 11:14 | POSTANESTH ---
Post Anesthetic Evaluation Cardiovascular Status: Normal, Stable Respiratory Status: Normal, Stable Level of Consciousness/Mental Status: Can Participate in Eval Pain Control: Adequate, Prn Tx Ordered Nausea/Vomiting Control: Adequate, Prn Tx Ordered Complications Possibly Related to Anesthesia: None Noted
[2017-04-20] MEDS ORDERED: ALBUTEROL 60 PUFFS/8 GM MDI IH PRN (11:43)
[2017-04-20] MEDS ORDERED: CALCIUM CARBONATE 500 MG CHEWABLE TAB PO PRN (11:43)
[2017-04-20] MEDS ORDERED: DICLOFENAC SODIUM 1% 100 GM GEL TP PRN (11:43)
[2017-04-20] MEDS ORDERED: CETIRIZINE 10 MG TAB PO PRN (11:43)
[2017-04-20] MEDS ORDERED: FAMOTIDINE 40 MG PO PRN (11:43)
[2017-04-20] MEDS ORDERED: LORazepam 0.5 MG TAB PO PRN (11:43)
[2017-04-20] MEDS ORDERED: ALBUTEROL 200 PUFFS/18 GM MDI IH PRN (12:42)
[2017-04-20] MEDS: OXYCODONE/APAP 5/325 TAB PO PRN ×2 (12:54→16:16)
[2017-04-20] MEDS: traMADol 50 MG TAB PO PRN ×2 (13:51→22:07)
[2017-04-20] MEDS: CLINDAMYCIN 900 MG/DEXTROSE 50 ML IV SCH ×2 (13:51→22:03)
[2017-04-20] MEDS ORDERED: HYDRALAZINE HCL 100 MG PO SCH (16:00)
[2017-04-20] MEDS: GEMFIBROZIL 600 MG TAB PO SCH (16:17)
[2017-04-20] MEDS: metFORMIN HCL 500 MG TAB PO SCH (16:17)
--- NOTE | 2017-04-20 16:27 | PDGENHP ---
History and Physical - Chief Complaint Acute leg pain - History of Present Illness primary service: Orthopedics, Dr. Chowdary Reason for consultation: Medical comanagement HPI: 61-year-old female presenting with acute leg pain characterized as sharp pain located in her left hip, exacerbated by ambulation, alleviated by oxycodone and Dilaudid. Onset of symptoms was a couple months ago and duration has been progressively worsening thereafter. Of note, patient presented to our emergency department approximately a week and half ago and was found to have incomplete stress fracture on MRI. The decision was made to pursue surgery and she underwent surgery on 04/20/2017. She denies any postoperative chest pain shortness of breath or wheezing. She has not moved her bowels after surgery. She had been nonweightbearing at rehab and has been mostly bed-bound up until the day of her surgery. History Information - Allergies/Home Medication List Allergies/Adverse Reactions: cephalexin [Cephalexin] Allergy (Mild, Verified 04/10/17 16:30) erythema multiforme hydrochlorothiazide Allergy (Mild, Verified 04/10/17 16:30) Rash Thiazides Allergy (Verified 04/10/17 16:13) diazides Allergy (Uncoded 01/20/11 17:01) Home Medications: Acetaminophen [Tylenol ES 500 mg (*)] 1,000 mg PO QID 04/10/17 [Last Taken 04/19] Albuterol [Proventil Inhaler HFA (*)] 1 - 2 puffs IH Q4H PRN 04/10/17 [Last Taken 04/06/17] Atenolol [Tenormin 100 mg (*)] 100 mg PO HS 04/10/17 [Last Taken 04/19/17] Calcium Carbonate [Tums 500MG (*)] 500 mg PO TID PRN 04/10/17 [Last Taken Unknown] Cetirizine [ZyrTEC 10 mg (*)] 10 mg PO DAILY PRN 04/10/17 [Last Taken Unknown] Diclofenac Sodium 1% [Voltaren Gel (*)] 4 gm TP QID PRN 04/10/17 [Last Taken Unknown] Eflornithine HCl [Vaniqa] 1 gm TP BID 04/10/17 [Last Taken 04/08/17] FLUTICASONE/SALMETEROL [ADVAIR HFA 230-21 MCG INHALER] 2 puffs IH BID 04/10/17 [ Last Taken 04/19/17 18:00] Famotidine [Pepcid] 40 mg PO DAILY PRN 04/10/17 [Last Taken Unknown] Furosemide [Lasix 40 MG (*)] 40 mg PO DAILY 04/10/17 [Last Taken 04/19/17 08:00] Gemfibrozil [Lopid 600 MG (*)] 600 mg PO BIDAC 04/10/17 [Last Taken 04/19/17 18: 00] Herbals/Supplements -Info Only 1 ea PO DAILY 04/10/17 [Last Taken Unknown] Hydralazine HCl [Apresoline 100 mg] 100 mg PO TID 04/10/17 [Last Taken 04/19/17 20:00] LORazepam [Ativan (*)] 0.25 - 0.5 mg PO HS PRN 04/10/17 [Last Taken 04/19/17] Lisinopril [Zestril 40 mg (*)] 40 mg PO DAILY 04/10/17 [Last Taken 04/19/17] Montelukast Sodium [Singulair 10 mg (*)] 10 mg PO HS 04/10/17 [Last Taken ] Multivitamins [Multivitamin (*)] 1 each PO DAILY 04/10/17 [Last Taken 04/19/17] Simvastatin [Zocor] 20 mg PO HS 04/10/17 [Last Taken 04/19/17] Terazosin HCl 10 mg PO HS 04/10/17 [Last Taken 04/19/17] Vitamin B Complex [B Complex] 1 each PO DAILY 04/10/17 [Last Taken 04/19/17] metFORMIN HCL [Metformin HCl] 1,000 mg PO BIDMEAL 04/10/17 [Last Taken 04/19/17 18:00] oxyCODONE IR [Oxycodone Ir (*)] 5 - 10 mg PO DAILY PRN 04/10/17 [Last Taken ] traMADol [Ultram 50 mg (*)] 100 mg PO QID 04/10/17 [Last Taken 04/19/17 23:30] Calcium Carb W/Vit D [Calcium Carb W/Vit D 500/200 (*)] 1,000 mg PO BID [Last Taken 04/19/17] Docusate Sodium [Colace 100 MG (*)] 100 - 200 mg PO BID 04/20/17 [Last Taken 21:00 100mg] [place]-3 Fatty Acids [Fish Oil 1000 mg (*)] 1,000 mg PO DAILY 04/20/17 [Last Taken 04/18/17] I have personally reviewed and updated: family history, medical history, social history, surgical history - Past Medical History asthma, diabetes type 2, hypertension, hyperlipidemia Additional medical history: osteoarthritis. chronic pain with continuous opiate dependency - Surgical History Additional surgical history: right ORIF. tonsillectomy. ARABELLA. left knee scope - Family History Positive for: CAD ( second-degree relatives) Additional family history: father with AICD and permanent pacemaker, sister with myocardial infarction in her 40s - Social History Smoking Status: Never smoked Alcohol Use: Occasionally Additional social history: lives alone, works as a pharmacist at [employer] Review of Systems ROS: 10pt was reviewed & negative except for what was stated in HPI & below Muscolosketal: Reports: joint pain ( left hip) Physical Exam Temp Pulse Resp BP Pulse Ox 37.1 C 86 16 133/84 H 96 04/20/17 15:32 04/20/17 15:32 04/20/17 15:32 04/20/17 15:32 04/20/17 15:32 O2 (L/minute) 2 Constitutional: no apparent distress, appears nourished, not in pain Eyes: PERRL, anicteric sclera, EOMI Ears, Nose, Mouth, Throat: moist mucous membranes, hearing normal, ears appear normal, no oral mucosal ulcers Cardiovascular: regular rate and rhythym, no murmur, rub, or gallop, No edema Respiratory: no respiratory distress, no rales or rhonchi, clear to auscultation Gastrointestinal: normoactive bowel sounds, soft, non-tender abdomen, no palpable masses Skin: other ( soft tissue edema but no erythema or induration at the left hip) Musculoskeletal: other ( tenderness to palpation over the left hip with limited range of motion secondary to pain) Neurologic: AAOx3, sensation intact bilaterally, No weakness ( motor strength 5/ 5 distal bilateral lower extremities) Psychiatric: interacting appropriately, not anxious, not encephalopathic, thought process linear Lab Data & Imaging Review POC Glucose 113 mg/dL (70-100) H 04/20/17 06:23 Assessment & Plan Assessment: 61-year-old female presents with incomplete stress fracture of left femur requiring surgical management Plan: 1. Femur fracture. Acute worsening of chronic condition, further workup indicated. Postop day [address] Chowdary with left hip joi placement and no complications noted. -reviewed outside records including 04/15/2017 discharge summary by Emma Terrazas, reporting the patient received an MRI demonstrating incomplete stress fracture of her left femur, she was discharged to a longterm facility and made nonweightbearing status until her surgery on the day of this presentation. -baseline hemoglobin 13.1, repeat CBC tomorrow to ensure no acute blood-loss anemia -reviewed operative report by Dr. Chowdary, she instructions the patient should be weight-bearing as tolerated postoperatively and can utilize a walker -per Dr. Chowdary, Lovenox and aspirin for DVT prevention, under management -the patient is requesting adjustment of pain medications from Percocet to oxycodone immediate release, dose range prescribed -continue patient on bowel regimen to prevent constipation -discussed with sample case porter patient's logistics to get home, she has PT and OT assessments this will help determine whether patient is safe to manage at home verses requiring longterm facility with rehab 2. Diabetes mellitus type 2. patient utilizes metformin at home, her glucose preop was 113, she does not require insulin sliding scale -re-initiated on home dosage of metformin, to start this evening with dinner 3. History of asthma. Patient has a history of asthma but does not presently have any evidence of acute exacerbation on physical exam -continue home medications 4. Hypertension. Chronic, continue patient's home medications, would recommend discontinuing IV fluids at this time to prevent volume overload Hospital Medicine will continue to consult in this patient's care if so desired by the primary orthopedic service, I will be available tomorrow at [phone] for any further discussion if needed prior to this patient's discharge.
[2017-04-20] MEDS: ATENOLOL 100 MG TAB PO SCH (19:41)
[2017-04-20] MEDS: oxyCODONE IR 5 MG TAB PO PRN ×2 (19:41→23:36)
[2017-04-20] MEDS: MONTELUKAST SODIUM 10 MG TAB PO SCH (19:42)
[2017-04-20] MEDS: SENNOSIDES/DOCUSATE SODIUM TAB PO SCH (19:42)
[2017-04-20] MEDS: CALCIUM CARB W/VIT D 500 MG TAB PO SCH (19:42)
[2017-04-20] MEDS: DOCUSATE SODIUM 100 MG CAP PO SCH (19:42)
[2017-04-20] MEDS: ATORVASTATIN CALCIUM 10 MG TAB PO SCH (19:42)
[2017-04-20] MEDS: TERAZOSIN HCL 5 MG CAP PO SCH (19:51)
[2017-04-20] MEDS ORDERED: NON-FORMULARY NEW DRUG (Simvastatin [Zocor] 20 MG) PO SCH (21:00)
[2017-04-20] MEDS ORDERED: TERAZOSIN HCL 10 MG PO SCH (21:00)
[2017-04-20] MEDS: Fluticasone/Salmeterol [Advair Hfa 230-21 Mcg Inhaler] 2 PUFFS IH SCH (22:04)
[2017-04-21] MEDS: oxyCODONE IR 5 MG TAB PO PRN ×6 (03:23→21:29)
[2017-04-21 05:03] LABS: % IMMATURE GRANULYOCYTES 0.6 % (0.0-1.1); ABSOLUTE IMMATURE GRANULOCYTES 0.05 10^3/uL (0.00-0.10); ADD DIFF? NO; ADD MORPH? NO; ADD SCAN? NO; ATYPICAL LYMPHOCYTE FLAG 0 (0-99); FRAGMENT RBC FLAG 0 (0-99); HEMATOCRIT 29.5 % (38.0-47.0); LEFT SHIFT FLG 0 (0-99); LIPEMIA HEMOLYSIS FLAG 90 (0-99); MEAN CELL HEMOGLOBIN 32.2 pg (27.9-34.1); MEAN CELL HEMOGLOBIN CONCENTR. 33.9 g/dL (32.4-36.7); MEAN CELL VOLUME 94.9 fL (81.5-99.8); MEAN PLATELET VOLUME 10.6 fL (8.7-11.7); PLATELET CLUMPS FLAG 0 (0-99); PLATELET COUNT 256 10^3/uL (150-400); RED BLOOD CELL COUNT 3.11 10^6/uL (4.18-5.33); RED CELL DISTRIBUTION WIDTH 12.7 % (11.5-15.2)
[2017-04-21 05:30] LABS: ANION GAP 11 mEq/L (8-16); CALCIUM 10.2 mg/dL (8.5-10.4); CARBON DIOXIDE 26 mEq/l (22-31); CHLORIDE 98 mEq/L (97-110); CREATININE 0.8 mg/dL (0.6-1.0); GLOMERULAR FILTRATION RATE > 60; GLUCOSE 116 mg/dL (70-100); POTASSIUM 4.4 mEq/L (3.5-5.2); SODIUM 135 mEq/L (134-144)
[2017-04-21] MEDS: POLYETHYLENE GLYCOL 3350 17 GM PKT PO SCH (08:18)
[2017-04-21] MEDS: metFORMIN HCL 500 MG TAB PO SCH ×2 (08:19→17:17)
[2017-04-21] MEDS: traMADol 50 MG TAB PO PRN ×2 (08:20→15:06)
[2017-04-21] MEDS: DOCUSATE SODIUM 100 MG CAP PO SCH ×2 (08:21→21:29)
[2017-04-21] MEDS: FAMOTIDINE 20 MG TAB PO SCH (08:22)
[2017-04-21] MEDS: GEMFIBROZIL 600 MG TAB PO SCH ×2 (08:23→17:17)
[2017-04-21] MEDS: FUROSEMIDE 40 MG TAB PO SCH (08:23)
[2017-04-21] MEDS: SENNOSIDES/DOCUSATE SODIUM TAB PO SCH ×2 (08:23→21:29)
[2017-04-21] MEDS: ENOXAPARIN 40 MG/0.4 ML SYR SC SCH (08:24)
[2017-04-21] MEDS: CALCIUM CARB W/VIT D 500 MG TAB PO SCH ×2 (08:24→21:29)
[2017-04-21] MEDS: ASPIRIN EC 81 MG TAB PO SCH (08:24)
[2017-04-21] MEDS: LISINOPRIL 40 MG TAB PO SCH (08:25)
[2017-04-21] MEDS: Fluticasone/Salmeterol [Advair Hfa 230-21 Mcg Inhaler] 2 PUFFS IH SCH ×2 (08:44→20:50)
[2017-04-21] MEDS: ACETAMINOPHEN 500 MG TAB PO PRN (11:21)
--- NOTE | 2017-04-21 12:02 | SOAPPROG ---
SOAP Progress Note Assessment/Plan: Assessment/Plan: 61y/o female s/p left hip joi placement for treatment of fracture - pain medication as written, doing ok with Oxycodone and Tramadol - PT/OT - [place] will need home health, will begin coordination with case management - appreciate internal medicine input and care - anticipate discharge tomorrow morning pending clinical course 04/21/17 12:02 Subjective: Having hip pain/soreness, most prominently with movement. Eating, drinking, voiding. Objective: Vital Signs Temp Pulse Resp BP Pulse Ox 36.9 C 74 18 115/66 93 04/21/17 11:56 04/21/17 11:56 04/21/17 11:56 04/21/17 11:56 04/21/17 11:56 Laboratory Results 04/21/17 04:20 04/21/17 04:20 04/20/17 04/21/17 04/22/17 05:59 05:59 05:59 Intake Total 1900 Output Total 1400 Balance 500 NAD, well appearing, no distress EOMi, face symmetric MAEx4 incision CDI, no erythema or active drainage; new dressing placed LLE neurovascularly intact ICD10 Worksheet Patient Problems: Problems Problem Status Onset Fracture of proximal end of femur Acute Osteoarthritis of knees, bilateral Acute
--- NOTE | 2017-04-21 15:25 | HOSPPROG ---
Hospitalist Progress Note Assessment/Plan: Assessment: 61-year-old female presents with incomplete stress fracture of left femur requiring surgical management Plan: 1. Femur fracture. Postop day [address] Chowdary with left hip joi placement and no complications noted. -patient remains unsteady on her feet w/ walker, and PT/OT recommended extending hospitalization and working on ambulation for another 24hrs to ensure a safe transition home w/ home care tomorrow, deemed unsafe to DC independently today -pain mgmt adequate w/ oxy IR -Hgb stable at 10 2. Diabetes mellitus type 2. Gluc 116 this AM, patient utilizes metformin at home, continue 3. History of asthma. Patient has a history of asthma but does not presently have any evidence of acute exacerbation on physical exam -continue home medications 4. Hypertension. Chronic, continue patient's home medications Hospital Medicine will sign off. Please contact if further issues arise. Subjective: patient reports that her pain is manageable with the oxycodone immediate release 10 mg, she does feel somewhat slow on her feet and had standby assist Objective: Vital Signs Temp Pulse Resp BP Pulse Ox 36.9 C 74 18 115/66 93 04/21/17 11:56 04/21/17 11:56 04/21/17 11:56 04/21/17 11:56 04/21/17 11:56 Laboratory Results 04/21/17 04:20 04/21/17 04:20 04/20/17 04/21/17 04/22/17 05:59 05:59 05:59 Intake Total 1900 Output Total 1400 Balance 500 - Pending Discharge Pending Discharge Within 24 Hours: Yes Pending Discharge Date: 04/22/17 Pending Discharge Time: 11:00 - Physical Exam Constitutional: no apparent distress, not in pain, obese, uncomfortable Cardiovascular: regular rate and rhythym, no murmur, rub, or gallop Respiratory: no respiratory distress, no rales or rhonchi, clear to auscultation Gastrointestinal: normoactive bowel sounds, soft, non-tender abdomen, no palpable masses Skin: other ( mild soft tissue edema at the surgical site without any ecchymoses or erythema, no induration) Musculoskeletal: other ( mild tenderness over the left hip, pain limited on flexion secondary left hip) Neurologic: AAOx3, sensation intact bilaterally Psychiatric: interacting appropriately, not anxious, not encephalopathic, thought process linear ICD10 Worksheet Patient Problems: Problems Problem Status Onset Osteoarthritis of knees, bilateral Acute Fracture of proximal end of femur Acute
[2017-04-21] MEDS: ATENOLOL 100 MG TAB PO SCH (21:30)
[2017-04-21] MEDS: TERAZOSIN HCL 5 MG CAP PO SCH (21:30)
[2017-04-21] MEDS: MONTELUKAST SODIUM 10 MG TAB PO SCH (21:30)
[2017-04-21] MEDS: ATORVASTATIN CALCIUM 10 MG TAB PO SCH (21:30)
--- NOTE | 2017-04-21 23:05 | PDIAF ---
- Diagnosis Diagnosis: left hip fracture Code Status: Full Code - Medication Management Discharge Medications: Medications to Continue on Transfer Albuterol [Proventil Inhaler HFA (*)] 1 - 2 puffs IH Q4H PRN 04/10/17 [Last Taken 04/06/17] Atenolol [Tenormin 100 mg (*)] 100 mg PO HS 04/10/17 [Last Taken 04/19/17] Calcium Carbonate [Tums 500MG (*)] 500 mg PO TID PRN 04/10/17 [Last Taken Unknown] Cetirizine [ZyrTEC 10 mg (*)] 10 mg PO DAILY PRN 04/10/17 [Last Taken Unknown] Diclofenac Sodium 1% [Voltaren Gel (*)] 4 gm TP QID PRN 04/10/17 [Last Taken Unknown] Eflornithine HCl [Vaniqa] 1 gm TP BID 04/10/17 [Last Taken 04/08/17] FLUTICASONE/SALMETEROL [ADVAIR HFA 230-21 MCG INHALER] 2 puffs IH BID 04/10/17 [ Last Taken 04/19/17 18:00] Famotidine [Pepcid] 40 mg PO DAILY PRN 04/10/17 [Last Taken Unknown] Furosemide [Lasix 40 MG (*)] 40 mg PO DAILY 04/10/17 [Last Taken 04/19/17 08:00] Gemfibrozil [Lopid 600 MG (*)] 600 mg PO BIDAC 04/10/17 [Last Taken 04/19/17 18: 00] Herbals/Supplements -Info Only 1 ea PO DAILY 04/10/17 [Last Taken Unknown] Hydralazine HCl [Apresoline 100 mg] 100 mg PO TID 04/10/17 [Last Taken 04/19/17 20:00] LORazepam [Ativan (*)] 0.25 - 0.5 mg PO HS PRN 04/10/17 [Last Taken 04/19/17] Lisinopril [Zestril 40 mg (*)] 40 mg PO DAILY 04/10/17 [Last Taken 04/19/17] Montelukast Sodium [Singulair 10 mg (*)] 10 mg PO HS 04/10/17 [Last Taken ] Multivitamins [Multivitamin (*)] 1 each PO DAILY 04/10/17 [Last Taken 04/19/17] Simvastatin [Zocor] 20 mg PO HS 04/10/17 [Last Taken 04/19/17] Terazosin HCl 10 mg PO HS 04/10/17 [Last Taken 04/19/17] Vitamin B Complex [B Complex] 1 each PO DAILY 04/10/17 [Last Taken 04/19/17] metFORMIN HCL [Metformin HCl] 1,000 mg PO BIDMEAL 04/10/17 [Last Taken 04/19/17 18:00] Aspirin EC [Aspirin EC 81 mg (*)] 81 mg PO DAILY tab 04/15/17 [Last Taken 04/15] Polyethylene Glycol 3350 [Miralax 17 gm (*)] 17 gm PO DAILY pkt 04/15/17 [Last Taken 04/19/17] Sennosides/Docusate Sodium [Senokot-S] 1 - 2 tab PO BID tab 04/15/17 [Last Taken 04/19/17] Calcium Carb W/Vit D [Calcium Carb W/Vit D 500/200 (*)] 1,000 mg PO BID [Last Taken 04/19/17] Docusate Sodium [Colace 100 MG (*)] 100 - 200 mg PO BID 04/20/17 [Last Taken 21:00 100mg] [place]-3 Fatty Acids [Fish Oil 1000 mg (*)] 1,000 mg PO DAILY 04/20/17 [Last Taken 04/18/17] Acetaminophen [Tylenol ES 500 mg (*)] 1,000 mg PO TID PRN #0 tab 04/21/17 [Last Taken Unknown] Enoxaparin [Lovenox 40 MG (*)] 40 mg SC DAILY #0 syr 04/21/17 [Last Taken Unknown] oxyCODONE IR [Oxycodone Ir (*)] 2.5 - 10 mg PO Q3 PRN #0 tab 04/21/17 [Last Taken Unknown] traMADol [Ultram 50 mg (*)] 50 mg PO Q6HRS PRN #0 tab 04/21/17 [Last Taken Unknown] Discharge Medications: Refer to the Discharge Home Medication list for PRN reason. PICC Care - Routine: N/A - Orders Services needed: Home Care, Physical Therapy, Occupational Therapy Home Care Face to Face: I certify that this patient was under my care and that I had the required [id number] encounter meeting the encounter requirements on the discharge day. My findings support the fact that the patient is homebound as defined in CMS Chapter 7 Medicare Benefits Manual 30.1.1, The condition of the patient is such that there exists a normal inability to leave home and consequently, leaving home would require a considerable and taxing effort. Diet Recommendation: no restrictions on diet Ras Stockings Discontinue Date: to be discussed at first post-operative visit Wound Care Instructions: keep incision clean and dry Sutures/[place] Site: will remove at post-operative visit Activity/Weight Bearing Restrictions: WBAT with walker - Follow Up Care Current Providers and Referrals: Ivon Chen MD [Primary Care Provider] -
[2017-04-22] MEDS: oxyCODONE IR 5 MG TAB PO PRN ×5 (03:35→21:30)
[2017-04-22] MEDS: FAMOTIDINE 20 MG TAB PO SCH (07:59)
[2017-04-22] MEDS: ASPIRIN EC 81 MG TAB PO SCH (07:59)
[2017-04-22] MEDS: metFORMIN HCL 500 MG TAB PO SCH ×2 (08:00→17:17)
[2017-04-22] MEDS: GEMFIBROZIL 600 MG TAB PO SCH ×2 (08:00→17:17)
[2017-04-22] MEDS: POLYETHYLENE GLYCOL 3350 17 GM PKT PO SCH (08:01)
[2017-04-22] MEDS: SENNOSIDES/DOCUSATE SODIUM TAB PO SCH ×2 (08:01→19:57)
[2017-04-22] MEDS: ENOXAPARIN 40 MG/0.4 ML SYR SC SCH (08:01)
[2017-04-22] MEDS: FUROSEMIDE 40 MG TAB PO SCH (08:02)
[2017-04-22] MEDS: CALCIUM CARB W/VIT D 500 MG TAB PO SCH ×2 (08:02→19:56)
[2017-04-22] MEDS: DOCUSATE SODIUM 100 MG CAP PO SCH ×2 (08:02→19:57)
[2017-04-22] MEDS: LISINOPRIL 40 MG TAB PO SCH (08:02)
[2017-04-22] MEDS: Fluticasone/Salmeterol [Advair Hfa 230-21 Mcg Inhaler] 2 PUFFS IH SCH ×2 (08:15→21:30)
[2017-04-22] MEDS: ACETAMINOPHEN 500 MG TAB PO PRN (17:16)
[2017-04-22] MEDS: ATENOLOL 100 MG TAB PO SCH (19:56)
[2017-04-22] MEDS: ATORVASTATIN CALCIUM 10 MG TAB PO SCH (19:56)
[2017-04-22] MEDS: MONTELUKAST SODIUM 10 MG TAB PO SCH (19:57)
[2017-04-22] MEDS: TERAZOSIN HCL 5 MG CAP PO SCH (19:59)
--- NOTE | 2017-04-22 21:20 | SOAPPROG ---
SOAP Progress Note Assessment/Plan: Assessment/Plan: 61y/o female s/p left hip joi placement for fracture - pain medications as ordered - WBAT - walker for stabilization - Lovenox and ASA start tomorrow; TEDs/SCDs - will consult medicine for aid in management of medical issues, appreciate their care - PT/OT - call with issues or concerns 04/20/17 10:32 04/22/17 21:19 Awaiting insurance authorization for discharge to SNF Subjective: Still having left hip pain. Improving. Objective: Vital Signs Temp Pulse Resp BP Pulse Ox 36.7 C 86 18 108/61 90 L 04/22/17 15:39 04/22/17 19:56 04/22/17 15:39 04/22/17 19:56 04/22/17 15:39 Laboratory Results 04/21/17 04:20 04/21/17 04:20 04/21/17 04/22/17 04/23/17 05:59 05:59 05:59 Intake Total 1900 300 Output Total 1400 1000 Balance 500 -700 Dressing dry and intact N/V intact Minimal swelling left thigh - Pending Discharge Pending Discharge Within 24 Hours: Yes Pending Discharge Date: 04/23/17 Pending Discharge Time: 11:00 ICD10 Worksheet Patient Problems: Problems Problem Status Onset Fracture of proximal end of femur Acute Osteoarthritis of knees, bilateral Acute
[2017-04-23] MEDS: metFORMIN HCL 500 MG TAB PO SCH (07:26)
[2017-04-23] MEDS: GEMFIBROZIL 600 MG TAB PO SCH (07:26)
[2017-04-23 07:38] VITALS: BP 117/71; TEMP 99.9; O2SAT 92
[2017-04-23] MEDS: oxyCODONE IR 5 MG TAB PO PRN ×2 (07:41→10:44)
--- NOTE | 2017-04-23 07:53 | GOP ---
[f rep st] OPERATIVE REPORT DATE OF OPERATION: 04/20/2017 SURGEON: Camilla Chowdary MD SPOOL SORTER: Katrin Buenrostro PA-C. ANESTHESIA: General. PREOPERATIVE DIAGNOSIS: Left subtrochanteric femur stress fracture. POSTOPERATIVE DIAGNOSIS: Left subtrochanteric femur stress fracture. PROCEDURE PERFORMED: Intramedullary nailing with a trochanteric femoral nail, left femur. FINDINGS: Preoperative x-rays and MRI scan of the patient's left hip and femur demonstrated an exte nsive subtrochanteric stress fracture along the medial aspect of the left femur. The patient failed conservative management, so a trochanteric femoral nail was inserted to stabilize the stress fractu re. A Synthes TFN 10 mm x 380 mm with 130 degree neck angle joi was inserted with an 85 mm helical lag screw. Intraoperative imaging using the C-arm confirmed satisfactory placement of the joi and l ag screw. The patient had a total knee on the left side as well, so the joi was passed just beyond the anterior flange of the total knee to prevent a stress riser between the hardware. ESTIMATED BLOOD LOSS: 200 cc. DESCRIPTION OF PROCEDURE: The patient was taken to the operating room, placed in a supine position on the fracture table. Following induction of adequate general endotracheal anesthesia, the hip and leg were prepped and draped in the usual sterile manner. The patient received 900 mg of clindamyci n. A longitudinal incision was made extending from the greater trochanter proximally for approximat jaya 10 cm. The incision was carried down through the subcutaneous tissue to the greater trochanter and the gluteus musculature. Using the C-arm for visualization, the gluteus fascia was split, and t hen the tip of the trochanter was localized. The guidewire was inserted in the appropriate position in the AP and lateral plane and then advanced to the lesser trochanter. The reamer was used proxim ally to open up the intertrochanteric region and then a long guidewire was inserted and positioned d istally in order to determine the appropriate nail length. The 380 mm nail was chosen as the best f it. Again this passed just beyond the anterior flange of the total knee so as not to create a stres s riser between the 2 pieces of hardware. The nail was then opened, and the femur was reamed up to 11.5 mm. The 10 mm nail was inserted, and once it was impacted to the appropriate position, the marco a dewire was passed up into the neck and head. Again, the position of the guidewire was confirmed in the AP and lateral planes and noted to be satisfactory. The lag screw was measured, and an 85 mm la g screw was opened. This was drilled and inserted. Intraoperative imaging confirmed satisfactory p osition of all hardware. No distal interlock was felt necessary because there was not a true fractu re, and hence, there was no rotational instability. The incisions were then thoroughly irrigated ou t, and the fascia over the gluteus musculature was closed using 0 Vicryl. The subcutaneous tissues were closed using 0 Vicryl followed by 2-0 Vicryl, and the skin was closed using alvina. Sterile d ressings were applied. The patient tolerated the procedure well, and there were no complications. Final sponge and needle counts were correct. The patient was transported to the recovery room in go od condition. /[id number]/MODL
[2017-04-23] MEDS: Fluticasone/Salmeterol [Advair Hfa 230-21 Mcg Inhaler] 2 PUFFS IH SCH (09:10)
[2017-04-23 09:14] VITALS: PULSE 71; RESP 12
[2017-04-23] MEDS: FAMOTIDINE 20 MG TAB PO SCH (09:22)
[2017-04-23] MEDS: ASPIRIN EC 81 MG TAB PO SCH (09:23)
[2017-04-23] MEDS: CALCIUM CARB W/VIT D 500 MG TAB PO SCH (09:23)
[2017-04-23] MEDS: DOCUSATE SODIUM 100 MG CAP PO SCH (09:25)
[2017-04-23] MEDS: LISINOPRIL 40 MG TAB PO SCH (09:25)
[2017-04-23] MEDS: ENOXAPARIN 40 MG/0.4 ML SYR SC SCH (09:26)
[2017-04-23] MEDS: POLYETHYLENE GLYCOL 3350 17 GM PKT PO SCH (09:27)
--- NOTE | 2017-04-23 10:20 | PDIAF ---
- Diagnosis Diagnosis: left hip fracture Code Status: Full Code - Medication Management Discharge Medications: Medications to Continue on Transfer Albuterol [Proventil Inhaler HFA (*)] 1 - 2 puffs IH Q4H PRN 04/10/17 [Last Taken 04/06/17] Atenolol [Tenormin 100 mg (*)] 100 mg PO HS 04/10/17 [Last Taken 04/19/17] Calcium Carbonate [Tums 500MG (*)] 500 mg PO TID PRN 04/10/17 [Last Taken Unknown] Cetirizine [ZyrTEC 10 mg (*)] 10 mg PO DAILY PRN 04/10/17 [Last Taken Unknown] Diclofenac Sodium 1% [Voltaren Gel (*)] 4 gm TP QID PRN 04/10/17 [Last Taken Unknown] Eflornithine HCl [Vaniqa] 1 gm TP BID 04/10/17 [Last Taken 04/08/17] FLUTICASONE/SALMETEROL [ADVAIR HFA 230-21 MCG INHALER] 2 puffs IH BID 04/10/17 [ Last Taken 04/19/17 18:00] Famotidine [Pepcid] 40 mg PO DAILY PRN 04/10/17 [Last Taken Unknown] Furosemide [Lasix 40 MG (*)] 40 mg PO DAILY 04/10/17 [Last Taken 04/19/17 08:00] Gemfibrozil [Lopid 600 MG (*)] 600 mg PO BIDAC 04/10/17 [Last Taken 04/19/17 18: 00] Herbals/Supplements -Info Only 1 ea PO DAILY 04/10/17 [Last Taken Unknown] Hydralazine HCl [Apresoline 100 mg] 100 mg PO TID 04/10/17 [Last Taken 04/19/17 20:00] LORazepam [Ativan (*)] 0.25 - 0.5 mg PO HS PRN 04/10/17 [Last Taken 04/19/17] Lisinopril [Zestril 40 mg (*)] 40 mg PO DAILY 04/10/17 [Last Taken 04/19/17] Montelukast Sodium [Singulair 10 mg (*)] 10 mg PO HS 04/10/17 [Last Taken ] Multivitamins [Multivitamin (*)] 1 each PO DAILY 04/10/17 [Last Taken 04/19/17] Simvastatin [Zocor] 20 mg PO HS 04/10/17 [Last Taken 04/19/17] Terazosin HCl 10 mg PO HS 04/10/17 [Last Taken 04/19/17] Vitamin B Complex [B Complex] 1 each PO DAILY 04/10/17 [Last Taken 04/19/17] metFORMIN HCL [Metformin HCl] 1,000 mg PO BIDMEAL 04/10/17 [Last Taken 04/19/17 18:00] Aspirin EC [Aspirin EC 81 mg (*)] 81 mg PO DAILY tab 04/15/17 [Last Taken 04/15] Polyethylene Glycol 3350 [Miralax 17 gm (*)] 17 gm PO DAILY pkt 04/15/17 [Last Taken 04/19/17] Sennosides/Docusate Sodium [Senokot-S] 1 - 2 tab PO BID tab 04/15/17 [Last Taken 04/19/17] Calcium Carb W/Vit D [Calcium Carb W/Vit D 500/200 (*)] 1,000 mg PO BID [Last Taken 04/19/17] Docusate Sodium [Colace 100 MG (*)] 100 - 200 mg PO BID 04/20/17 [Last Taken 21:00 100mg] [place]-3 Fatty Acids [Fish Oil 1000 mg (*)] 1,000 mg PO DAILY 04/20/17 [Last Taken 04/18/17] Acetaminophen [Tylenol ES 500 mg (*)] 1,000 mg PO TID PRN #0 tab 04/21/17 [Last Taken Unknown] Enoxaparin [Lovenox 40 MG (*)] 40 mg SC DAILY #0 syr 04/21/17 [Last Taken Unknown] oxyCODONE IR [Oxycodone Ir (*)] 2.5 - 10 mg PO Q3 PRN #0 tab 04/21/17 [Last Taken Unknown] traMADol [Ultram 50 mg (*)] 50 mg PO Q6HRS PRN #0 tab 04/21/17 [Last Taken Unknown] Discharge Medications: Refer to the Discharge Home Medication list for PRN reason. PICC Care - Routine: N/A - Orders Services needed: Home Care, Physical Therapy, Occupational Therapy Home Care Face to Face: I certify that this patient was under my care and that I had the required [id number] encounter meeting the encounter requirements on the discharge day. My findings support the fact that the patient is homebound as defined in CMS Chapter 7 Medicare Benefits Manual 30.1.1, The condition of the patient is such that there exists a normal inability to leave home and consequently, leaving home would require a considerable and taxing effort. Diet Recommendation: no restrictions on diet, ADA 1800 consistent carb Diet Texture: Regular Texture Diet Sesay: Not applicable Ras Stockings Discontinue Date: to be discussed at first post-operative visit Wound Care Instructions: keep incision clean and dry Sutures/[place] Site: will remove at post-operative visit Activity/Weight Bearing Restrictions: WBAT with walker - Follow Up Care Current Providers and Referrals: Ivon Chen MD [Primary Care Provider] -
[2017-04-23] MEDS: FUROSEMIDE 40 MG TAB PO SCH (10:37)
[2017-04-23] MEDS: SENNOSIDES/DOCUSATE SODIUM TAB PO SCH (10:37)
== END 2017-04-23 12:29 | DRG 482 ==
LOC: FSGY 05:41 → F3N 10:11
PROVIDERS: ADMIT Orthopaedic Surgery; ATTEND Orthopaedic Surgery
PROC: 0QS706Z Reposition Left Upper Femur with Intramedullary Internal Fixation Device, Open Approach (ICD-10-PCS; principal; 2017-04-20 07:15)
DX: M84.352A Stress fracture, left femur, initial encounter for fracture (principal); E11.9 Type 2 diabetes mellitus without complications; J45.909 Unspecified asthma, uncomplicated; I10 Essential (primary) hypertension
CPT/HCPCS: 97116-GP; 97161-GP; 97166-GO; 97535-GO; C1713; C1769; J1100; J1170; J1650; J2250; J2370; J2405; J2704; J3010

== ENCOUNTER → 2017-06-03 | Outpatient (CLI) | payer BC | LOC: FIMAGING 13:55 | PROVIDERS: ATTEND Internal Medicine | DX: Z12.31 Encounter for screening mammogram for malignant neoplasm of breast (principal) | CPT/HCPCS: G0202 ==

== ENCOUNTER → 2017-08-12 | Outpatient (CLI) | payer BC | LOC: FIMAGING 09:01 | PROVIDERS: ATTEND Specialist | DX: Z13.820 Encounter for screening for osteoporosis (principal); Z82.62 Family history of osteoporosis ==

== ENCOUNTER 2017-11-02 05:55 | Observation (INO) | payer BC, OTHER ==
[2017-11-02] MEDS ORDERED: ROPIVACAINE 0.2% 80 MG, EPINEPHrine 0.2 MG, KETOROLAC TROMETHAMINE 30 MG, morphINE 10 M... IU ONE (06:00)
[2017-11-02] MEDS ORDERED: FAMOTIDINE 20 MG TAB PO ONE (06:00)
[2017-11-02] MEDS ORDERED: CLINDAMYCIN 900 MG/DEXTROSE 50 ML IV ONE (06:00)
[2017-11-02] MEDS ORDERED: ACETAMINOPHEN 325 MG TAB PO ONE (06:00)
[2017-11-02] MEDS ORDERED: CALCIUM CHLORIDE 1 GM/10 ML INJ ONE (06:31)
[2017-11-02] MEDS ORDERED: THROMBIN (BOVINE) 5,000 UNIT VIAL TP ONE (06:31)
[2017-11-02] MEDS ORDERED: ceFAZolin 1 GM/5 ML SYR ONE (06:31)
[2017-11-02] MEDS ORDERED: LR 1,000 ML IV ONE (06:52)
[2017-11-02] MEDS: DEXAMETHASONE 4 MG/ML VIAL IVP ONE ×2 (07:01→10:39)
[2017-11-02] MEDS ORDERED: MIDAZOLAM 2 MG/2 ML VIAL IVP ONE (07:06)
--- NOTE | 2017-11-02 07:09 | PDANEPAE ---
ANE History of Present Illness R knee OA ANE Past Medical History - Cardiovascular History Hx Hypertension: Yes Hx Arrhythmias: No Hx Chest Pain: No Hx Coronary Artery / Peripheral Vascular Disease: No Hx CHF / Valvular Disease: No Hx Palpitations: No Cardiovascular History Comment: HAS [facility] APPT 01/14 FOR CLEARANCE - Pulmonary History Hx COPD: No Hx Asthma/Reactive Airway Disease: Yes Hx Recent Upper Respiratory Infection: No Hx Oxygen in Use at Home: Yes Hx Sleep Apnea: Yes Sleep Apnea Screening Result - Last Documented: Positive Pulmonary History Comment: ASTHMA - WELL CONTROLLED - Neurologic History Hx Cerebrovascular Accident: No Hx Seizures: No Hx Dementia: No - Endocrine History Hx Diabetes: Yes Endocrine History Comment: DM II - Renal History Hx Renal Disorders: No - Liver History Hx Hepatic Disorders: No - Neurological & Psychiatric Hx Hx Neurological and Psychiatric Disorders: Yes Neurological / Psychiatric History Comment: diabetic neuropathy both feet - Cancer History Hx Cancer: Yes Cancer History Comment: basal cell carcinoma - Congenital Disorder History Hx Congenital Disorders: No - GI History Hx Gastrointestinal Disorders: Yes Gastrointestinal History Comment: occasional heartburn - Other Health History Other Health History: low iron - Chronic Pain History Chronic Pain: Yes (arthritis in joints) - Surgical History Prior Surgeries: LEFT PATELLAR TENDON REPAIR 03/20/16. LEFT TKA WITH OSMAR 01/21/16. TONSILLECTOMY. ANKLE R. L KNEE SCOPE. HYSTERECTOMY ANE Review of Systems Review of Systems: - Exercise capacity METS (RN): 4 METS ANE Patient History - Allergies Allergies/Adverse Reactions: cephalexin [Cephalexin] Allergy (Mild, Verified 04/10/17 16:30) erythema multiforme hydrochlorothiazide Allergy (Mild, Verified 04/10/17 16:30) Rash Thiazides Allergy (Verified 04/10/17 16:13) diazides Allergy (Uncoded 01/20/11 17:01) - Home Medications Home Medications: Albuterol [Proventil Inhaler HFA (*)] 2 inh IH Q6 PRN 04/10/17 [Last Taken 04/06] Atenolol [Tenormin 100 mg (*)] 100 mg PO HS 04/10/17 [Last Taken 11/01/17] Eflornithine HCl [Vaniqa] 1 olivia TP BID 04/10/17 [Last Taken 11/01/17] FLUTICASONE/SALMETEROL [ADVAIR HFA 230-21 MCG INHALER] 2 inh IH BID 04/10/17 [ Last Taken 11/01/17] Furosemide [Lasix 40 MG (*)] 40 mg PO DAILY 04/10/17 [Last Taken 11/01/17] Herbals/Supplements -Info Only 1 each AD 04/10/17 [Last Taken 1 Week Ago ~] Hydralazine HCl [Apresoline 100 mg] 100 mg PO TID 04/10/17 [Last Taken 11/02/17] LORazepam [Ativan (*)] 0.25 - 0.5 mg PO HS PRN 04/10/17 [Last Taken 11/01/17] Lisinopril [Zestril 40 mg (*)] 40 mg PO DAILY 04/10/17 [Last Taken 11/02/17] Montelukast Sodium [Singulair 10 mg (*)] 10 mg PO HS 04/10/17 [Last Taken ] Simvastatin [Zocor] 20 mg PO HS 04/10/17 [Last Taken 11/01/17] Terazosin HCl 10 mg PO HS 04/10/17 [Last Taken 11/01/17] Vitamin B Complex [B Complex] 1 ea PO DAILY 04/10/17 [Last Taken 1 Week Ago ~11/12] Docusate Sodium [Colace 100 MG (*)] 200 mg PO BID 04/20/17 [Last Taken 11/01/17] [place]-3 Fatty Acids [Fish Oil 1000 mg (*)] 1,000 mg PO DAILY 04/20/17 [Last Taken 1 Week Ago ~10/26/17] Acetaminophen [Tylenol ES 500 mg (*)] 1,000 mg PO QID 10/02/17 [Last Taken 11/01] Ascorbic Acid [Vitamin C 500 mg (*)] 500 mg PO BID 10/02/17 [Last Taken 1 Week Ago ~10/26/17] Aspirin EC [Aspirin EC 81 mg (*)] 81 mg PO DAILY 10/02/17 [Last Taken 1 Week Ago ~10/26/17] Calcium Carbonate [Tums 500MG (*)] 500 mg PO DAILY PRN 10/02/17 [Last Taken 1 Week Ago ~10/26/17] Calcium Citrate W/Vit D [Citracal + D (OTC)] 630 mg PO BID 10/02/17 [Last Taken 1 Week Ago ~10/26/17] Cetirizine [ZyrTEC 10 mg (*)] 10 mg PO DAILY PRN 10/02/17 [Last Taken Unknown] Diclofenac Sodium 1% [Voltaren Gel (*)] 1 olivia TP BID 10/02/17 [Last Taken ] Famotidine [Pepcid 20 MG (*)] 20 mg PO DAILY PRN 10/02/17 [Last Taken 11/02/17] Gemfibrozil [Lopid 600 MG (*)] 600 mg PO BIDAC 10/02/17 [Last Taken 11/01/17] Glucosam/Chondr/Collagn/Hyalur [Glucosamine & Chondroitin Cap] 1 each PO BID 06/11 [Last Taken 1 Week Ago ~10/26/17] Ibuprofen [Motrin (*)] 600 mg PO DAILY PRN 10/02/17 [Last Taken Unknown] Iron Polysacch/Iron Heme Polyp [Bifera] 28 mg PO DAILY 10/02/17 [Last Taken 1 Week Ago ~10/26/17] Modafinil [Provigil 100 mg (*)] 50 mg PO DAILY PRN 10/02/17 [Last Taken 11/01/17 ] metFORMIN HCL [Glucophage 500 mg (*)] 1,000 mg PO BIDMEAL 10/02/17 [Last Taken 11/01/17] oxyCODONE IR [Oxycodone Ir (*)] 5 - 10 mg PO Q3 PRN 10/02/17 [Last Taken Unknown ] traMADol [Ultram 50 mg (*)] 100 mg PO QID 10/02/17 [Last Taken 11/02/17] - NPO status NPO Since - Liquids (Date): 11/02/17 NPO Since - Liquids (Time): 05:00 NPO Since - Solids (Date): 11/01/17 NPO Since - Solids (Time): 20:00 - Smoking Hx Smoking Status: Never smoked - Family Anes Hx Family Hx Anesthesia Complications: NEG ANE Labs/Vital Signs - Vital Signs Vital Signs: reviewed preoperatively; see RN documention for details Blood Pressure: 113/66 Heart Rate: 72 Respiratory Rate: 16 O2 Sat (%): 93 Height: 160.02 cm Weight: 88.451 kg ANE Physical Exam - Airway Neck exam: FROM Mallampati Score: Class 3 Mouth exam: normal dental/mouth exam - Pulmonary Pulmonary: no respiratory distress - Cardiovascular Cardiovascular: regular rate and rhythym - ASA Status ASA Status: III ANE Anesthesia Plan Anesthesia Plan: GA w LMA, spinal Regional Anesthesia: adductor canal FNB
[2017-11-02] MEDS ORDERED: ONDANSETRON 4 MG/2 ML VIAL ONE (07:11)
[2017-11-02] MEDS ORDERED: PROPOFOL/EMULSION 500 MG/50 ML BOTTLE IV ONE ×3 (07:11→09:49)
[2017-11-02] MEDS ORDERED: DEXAMETHASONE 4 MG/ML VIAL ONE (07:11)
[2017-11-02] MEDS ORDERED: MIDAZOLAM 2 MG/2 ML VIAL ONE (07:16)
[2017-11-02] MEDS ORDERED: BACITRACIN 50,000 UNITS/10 ML SYR IRR ONE (07:44)
[2017-11-02] MEDS ORDERED: SILVER NITRATE APPLICATOR 1 APPL TP ONE (07:54)
[2017-11-02] MEDS ORDERED: NEOMY SULF/BACITRAC ZN/POLY 30 GM OINTTUBE TP ONE (07:58)
[2017-11-02] MEDS ORDERED: PROMETHAZINE HCL 25 MG/ML INJ IVP PRN ×2 (08:37→11:22)
[2017-11-02] MEDS ORDERED: HYDROCODONE/APAP 5/325 TAB PO PRN (08:37)
[2017-11-02] MEDS ORDERED: MEPERIDINE 25 MG/ML SYR IVP PRN (08:37)
[2017-11-02] MEDS ORDERED: ONDANSETRON 4 MG/2 ML VIAL IVP PRN ×2 (08:37→11:22)
[2017-11-02] MEDS ORDERED: NALOXONE HCL 0.4 MG/ML INJ IVP PRN (08:37)
[2017-11-02] MEDS ORDERED: fentaNYL 100 MCG/2 ML INJ ONE ×2 (08:48→11:45)
[2017-11-02] MEDS ORDERED: ROPIVACAINE HCL 150 MG/30 ML INJ ONE (08:48)
[2017-11-02] MEDS ORDERED: HYDROmorphONE/DILAUDID 2 MG/ML INJ ONE (08:55)
[2017-11-02] MEDS ORDERED: diphenhydrAMINE 25 MG CAP PO PRN (11:22)
[2017-11-02] MEDS ORDERED: BISACODYL 10 MG SUPP PR PRN (11:22)
[2017-11-02] MEDS ORDERED: PROMETHAZINE HCL 25 MG SUPPR PR PRN (11:22)
[2017-11-02] MEDS ORDERED: METOCLOPRAMIDE 10 MG/2 ML VIAL IVP PRN (11:22)
[2017-11-02] MEDS ORDERED: ONDANSETRON DISINTEGRATING 4 MG TAB PO PRN (11:22)
[2017-11-02] MEDS ORDERED: MAGNESIUM HYDROXIDE 30 ML UDCUP PO PRN (11:22)
[2017-11-02] MEDS ORDERED: LACTULOSE 20 GM/30 ML UDCUP PO PRN (11:22)
[2017-11-02] MEDS ORDERED: DIPHENOXYLATE/ATROPINE LOMOTIL 1 TAB PO PRN (11:22)
[2017-11-02] MEDS ORDERED: POLYETHYLENE GLYCOL 3350 17 GM PKT PO PRN (11:22)
[2017-11-02] MEDS ORDERED: ALBUTEROL 60 PUFFS/8 GM MDI IH PRN (11:26)
[2017-11-02] MEDS ORDERED: FAMOTIDINE 20 MG TAB PO PRN (11:26)
[2017-11-02] MEDS ORDERED: CALCIUM CARBONATE 500 MG CHEWABLE TAB PO PRN (11:26)
[2017-11-02] MEDS ORDERED: CETIRIZINE 10 MG TAB PO PRN (11:26)
[2017-11-02] MEDS ORDERED: LORazepam 0.5 MG TAB PO PRN (11:26)
[2017-11-02] MEDS ORDERED: MODAFINIL 100 MG TAB PO PRN (11:26)
[2017-11-02] MEDS ORDERED: LR 1,000 ML IV SCH (11:30)
--- NOTE | 2017-11-02 11:31 | POSTOPPROG ---
Post Op Note Date of Operation: 11/02/17 Surgeon: Camilla Chowdary Manager Database Administration: Katrin Buenrostro Anesthesiologist: Dr. Brown Anesthesia: Spinal Pre-op Diagnosis: right knee osteoarthritis Post-op Diagnosis: right knee osteoarthritis Indication: right knee pain Procedure: right TKA Inf/Abcess present in the surg proc area at time of surgery?: No EBL: 50-100 Complications: none
[2017-11-02] MEDS ORDERED: HYDROmorphONE/DILAUDID 1 MG/ML INJ ONE (11:45)
[2017-11-02] MEDS: fentaNYL 100 MCG/2 ML INJ IVP PRN ×2 (11:50→12:12)
[2017-11-02] MEDS: HYDROmorphONE/DILAUDID 1 MG/ML INJ IVP PRN ×2 (11:50→12:44)
[2017-11-02] MEDS ORDERED: traMADol 50 MG TAB ONE (12:08)
[2017-11-02] MEDS: traMADol 50 MG TAB PO SCH ×3 (12:15→20:30)
[2017-11-02] MEDS ORDERED: ALBUTEROL 200 PUFFS/18 GM MDI IH PRN (12:15)
[2017-11-02] MEDS: ACETAMINOPHEN 325 MG TAB PO SCH ×2 (13:57→18:51)
--- NOTE | 2017-11-02 13:57 | GOP ---
[f rep st] OPERATIVE REPORT DATE OF OPERATION: 11/02/2016 SURGEON: Camilla Chowdary MD MEDIA LIAISON OFFICER: Katrin Buenrostro, HARRIET ANESTHESIA: Spinal with general. PREOPERATIVE DIAGNOSIS: Severe osteoarthritis, right knee. POSTOPERATIVE DIAGNOSIS: Severe osteoarthritis, right knee. PROCEDURE PERFORMED: Right total knee arthroplasty. FINDINGS: Preoperative x-rays of the patient's right knee demonstrated severe osteoarthritis most pr onounced in the medial and patellofemoral compartments. The patient did have tricompartmental involv ement. At the time of surgery, a cemented posterior stabilized Pollock and Nephew Journey II total kne e arthroplasty was performed. The size 4 femoral component was cemented into place and a size 3 tibi al base plate was utilized and cemented into place. A 9 mm thick cross-linked polyethylene insert wa s used in the metal backing of the tibia. A 35 mm oval patellar component was utilized. All the com ponents were cemented. The knee was taken through range of motion following implantation of the comp onents. The patient was noted to have full extension and 130 degrees of flexion. There was good tra cking of the patella. The knee was stable to varus and valgus stressing both in extension and 30 deg shaista of flexion. The extension and flexion gaps were balanced. ESTIMATED BLOOD LOSS: Minimal. DESCRIPTION OF PROCEDURE: The patient was taken the operating room, placed in supine position on the operating table. Following placement of a spinal block and induction of adequate general inhalation anesthesia, the knee and leg were prepped and draped in the usual sterile manner. The patient recei boubacar clindamycin preoperatively due to a cephalosporin allergy. The leg was elevated and exsanguinate d and the tourniquet inflated to 300 mmHg. The DeMayo leg whiteside was used throughout the procedure f or positioning. A midline incision was made extending from 2 fingerbreadths above the superior pole of patella distally to the tibial tubercle. Incision was carried down through the subcutaneous tissu e to the retinaculum of the knee. A medial parapatellar arthrotomy was then performed. The patella was everted laterally. Care was taken throughout the procedure to be extremely cautious with both th e patellar tendon and the quad tendon as the patient had a history of a previous patellar tendon rupt ure on the left side. The patellar thickness was measured and then a 9 mm cut was taken from the pos terior patella. The patella was sized and then the cut surface was protected with a metal plate and the patella was placed in the lateral gutter. Our attention was turned to the femur. Intramedullary referencing was utilized for both the femur and the tibia. A drill hole was placed in the distal fe mur and then the intramedullary guide was inserted and the distal femoral cutting block was positione d and pinned. A +2 cut was taken from the distal femur. The femur was then sized. A size 4 femoral component was chosen as the best fit. The 9 mm thick lollipop was utilized to beni that tibial cut prior to making the femoral cuts. The femoral cutting jig was placed on the distal femoral surface a nd pinned and then the anterior, posterior and chamfer cuts were made. Then, the size 4 trial femora l component was placed on the distal femur and the notch was cleared first with the reamer followed b y the box osteotome. The femoral component was then removed. Our attention was turned to the tibia. The drill was used to open up the tibial canal and then the intramedullary guide was utilized. The tibial cutting block was positioned and pinned on the around the proximal tibia. Again, care was ta fransisco throughout this procedure to be extremely cautious with the patellar tendon to prevent injury. T he tibial block was positioned and then the tibia was cut. The patient had significant bone loss pos teriorly on the tibia so the first cut was not adequate to compensate for the posterior tibial bone l oss. The tibia was recut an additional 4 mm. The cutting block was then removed and the lollipop wa s introduced. The patient was still tight medially so extensive soft tissue releases were performed medially. The medial collateral ligament was released from its tibial attachment and the posterior c apsule and cruciate ligaments were all released posteriorly. There was still some tightness medially so an additional 2 mm cut was taken from the tibia. The knee was not tight in flexion so the cut wa s made from the tibia. The lollipop could then be introduced both in flexion and extension. The tib ia was sized and the size 3 component was felt to be the best fit. It was pinned and a trial reducti on was performed. Excellent extension and stability were noted with the 9 mm thick polyethylene. Th e keel punch was then utilized and the trial components were all removed. The patella was prepared b y drilling the holes in the cut surface. All of the bony surfaces were thoroughly irrigated and drie d and then the cement was mixed. The tibial component was cemented into place first followed by the femur and the patella. All excess cement was removed from around the edges of the prosthesis. The k nee was held in extension while the cement hardened. Once the cement was hard, the trial polyethylen e was removed and a 9 mm polyethylene was inserted without difficulty. The wound was irrigated out a gain and the retinaculum of the knee was closed using #2 FiberWire in a [id number] fashion. Stefani nt cocktail was introduced in the posterior capsule prior to cementing the components. It was inject ed into the extensor mechanism at the completion of the procedure. Platelet gel was also injected in to the joint and subcutaneous tissues to enhance wound healing. The retinaculum was closed completel y followed by 2-0 Vicryl in the subcutaneous tissue and alvina in the skin. Steri-Strips and steril e dressings were applied. The patient tolerated the procedure well and there were no complications. Estimated blood loss was minimal. Final sponge, needle counts were correct. The patient was transp orted to the recovery room in good condition. /[id number]/MODL
[2017-11-02] MEDS: oxyCODONE IR 5 MG TAB PO PRN ×3 (14:16→20:29)
[2017-11-02] MEDS: CLINDAMYCIN 900 MG/DEXTROSE 50 ML IV SCH ×2 (14:53→22:45)
[2017-11-02] MEDS ORDERED: HYDRALAZINE HCL 100 MG PO SCH (16:00)
[2017-11-02] MEDS: metFORMIN HCL 500 MG TAB PO SCH (18:50)
[2017-11-02] MEDS: GEMFIBROZIL 600 MG TAB PO SCH (18:50)
[2017-11-02] MEDS: SENNOSIDES/DOCUSATE SODIUM TAB PO SCH (20:30)
[2017-11-02] MEDS: FAMOTIDINE 20 MG TAB PO SCH (20:31)
[2017-11-02] MEDS: DOCUSATE SODIUM 100 MG CAP PO SCH (20:33)
[2017-11-02] MEDS: ASCORBIC ACID 500 MG TAB PO SCH (20:34)
[2017-11-02] MEDS: CALCIUM CARB W/VIT D 500 MG TAB PO SCH (20:34)
[2017-11-02] MEDS: GLUCOSAMINE/CHONDROITIN CAP PO SCH (20:35)
[2017-11-02] MEDS ORDERED: NON-FORMULARY NEW DRUG (Simvastatin [Zocor] 20 MG) PO SCH (21:00)
[2017-11-02] MEDS ORDERED: MONTELUKAST SODIUM 10 MG TAB PO SCH (21:00)
[2017-11-02] MEDS ORDERED: NON-FORMULARY NEW DRUG (Glucosam/Chondr/Collagn/Hyalur [Glucosamine & Chondroitin Cap] 1 E PO SCH (21:00)
[2017-11-02] MEDS ORDERED: TERAZOSIN HCL 5 MG CAP PO SCH (21:00)
[2017-11-02] MEDS ORDERED: TERAZOSIN HCL 10 MG PO SCH (21:00)
[2017-11-02] MEDS ORDERED: CHOLECALCIFEROL PO SCH (21:00)
[2017-11-02] MEDS ORDERED: ATORVASTATIN CALCIUM 10 MG TAB PO SCH (21:00)
[2017-11-02] MEDS ORDERED: [UNRECOGNIZED DRUG - OTHER] PO SCH (21:00)
[2017-11-02] MEDS ORDERED: CALCIUM CITRATE PO SCH (21:00)
[2017-11-02] MEDS ORDERED: ATENOLOL 100 MG TAB PO SCH (21:00)
[2017-11-02] MEDS: SALMETEROL IH SCH (22:19)
[2017-11-02] MEDS: FLUTICASONE IH SCH (22:19)
[2017-11-03] MEDS: [UNRECOGNIZED DRUG - OTHER] TP SCH ×2 (00:17→10:38)
[2017-11-03] MEDS: ACETAMINOPHEN 325 MG TAB PO SCH ×4 (00:18→18:04)
[2017-11-03] MEDS: oxyCODONE IR 5 MG TAB PO PRN ×4 (04:49→17:06)
[2017-11-03] MEDS: traMADol 50 MG TAB PO SCH ×3 (06:23→17:07)
[2017-11-03] MEDS: CLINDAMYCIN 900 MG/DEXTROSE 50 ML IV SCH (06:24)
[2017-11-03] MEDS: GEMFIBROZIL 600 MG TAB PO SCH ×2 (08:34→17:14)
[2017-11-03] MEDS: metFORMIN HCL 500 MG TAB PO SCH ×2 (08:34→18:04)
[2017-11-03] MEDS: ASCORBIC ACID 500 MG TAB PO SCH (08:37)
[2017-11-03] MEDS: DOCUSATE SODIUM 100 MG CAP PO SCH (08:37)
[2017-11-03] MEDS: CALCIUM CARB W/VIT D 500 MG TAB PO SCH (08:38)
[2017-11-03] MEDS: FAMOTIDINE 20 MG TAB PO SCH (08:39)
[2017-11-03] MEDS: SENNOSIDES/DOCUSATE SODIUM TAB PO SCH (08:39)
[2017-11-03] MEDS ORDERED: FUROSEMIDE 40 MG TAB PO SCH (09:00)
[2017-11-03] MEDS ORDERED: FERROUS SULFATE 140 MG TAB.ER PO SCH (09:00)
[2017-11-03] MEDS ORDERED: LISINOPRIL 40 MG TAB PO SCH (09:00)
[2017-11-03] MEDS ORDERED: ASPIRIN 81 MG CHEWABLE TAB PO SCH (09:00)
[2017-11-03] MEDS: FLUTICASONE IH SCH (09:09)
[2017-11-03] MEDS: SALMETEROL IH SCH (09:09)
[2017-11-03] MEDS: GLUCOSAMINE/CHONDROITIN CAP PO SCH (10:12)
--- NOTE | 2017-11-03 14:52 | PDHOMEO2F ---
Home Oxygen Face to Face Home Orders: I certify that a physician or a nurse practitioner or physician's account management assistant has had a [id number] encounter with this patient on the date of this order due to the diagnosis listed, which relates to the primary reason the patient requires home oxygen. Alternative treatments have been tried, or considered, and deemed ineffective. It is anticipated that supplemental oxygen will result in improvement with treatment. Home oxygen qualifying diagnosis: hypoxia SpO2 on room air (%): 85 Frequency of home oxygen needed: continuous Home oxygen liters per minute: 2 Home oxygen delivery device: nasal cannula Concentrator: Yes E-tanks for mobility and back up: Yes If ordering portable O2, is the patient mobile in the home?: Yes I certify that, based on these findings, the home oxygen is medically necessary for this patient for the following length of time. Length of time home oxygen needed: 1 week (patient needs follow-up with PCP within 1 week to re-evaluate)
--- NOTE | 2017-11-03 14:56 | SOAPPROG ---
SOAP Progress Note Assessment/Plan: Assessment/Plan: 62y/o female s/p right TKA - pain relatively well managed, continue medications as ordered - home with Tylenol, Tramadol and Oxycodone - DVT prophylaxis with ASA, elevation and KENNEDY hose - PT/OT, continue brace with 0-60 - post-op xrays stable - [facility] care - oxygenating well when up and ambulating, when sleeping or resting patient is getting into 80s. Has been the case since surgery, patient asymptomatic. Patient uses CPAP at home. Will send home with home O2, patient will f/u with PCP within 1 week - follow-up appointment on November 16 - keep incision clean and dry - encouraged mobilization - discharge home this afternoon, home PT/OT/RN, call with issues or concerns 11/03/17 14:52 11/03/17 14:56 Subjective: Was able to walk, do stairs. Eating, drinking, voiding. Pain relatively well controlled Objective: Vital Signs Temp Pulse Resp BP Pulse Ox 37.2 C 73 16 134/70 H 3 L 11/03/17 11:43 11/03/17 11:43 11/03/17 11:43 11/03/17 12:21 11/03/17 12:21 Laboratory Results 11/03/17 04:40 11/02/17 11/03/17 11/04/17 05:59 05:59 05:59 Intake Total 2075 500 Output Total 1050 Balance 1025 500 NAD, well appearing, no distress EOMi, face symmetric VSS MAEx4 right knee extension 5, flexion 30 incision CDI, no erythema or active drainage; new dressing placed ICD10 Worksheet Patient Problems: Problems Problem Status Onset Fracture of proximal end of femur Acute Osteoarthritis of knees, bilateral Acute
--- NOTE | 2017-11-03 15:30 | PDIAF ---
- Diagnosis Diagnosis: right knee osteoarthritis Code Status: Full Code - Medication Management Discharge Medications: Medications to Continue on Transfer Albuterol [Proventil Inhaler HFA (*)] 2 inh IH Q6 PRN 04/10/17 [Last Taken 04/06] Atenolol [Tenormin 100 mg (*)] 100 mg PO HS 04/10/17 [Last Taken 11/01/17] Eflornithine HCl [Vaniqa] 1 olivia TP BID 04/10/17 [Last Taken 11/01/17] FLUTICASONE/SALMETEROL [ADVAIR HFA 230-21 MCG INHALER] 2 inh IH BID 04/10/17 [ Last Taken 11/01/17] Furosemide [Lasix 40 MG (*)] 40 mg PO DAILY 04/10/17 [Last Taken 11/01/17] Herbals/Supplements -Info Only 1 each AD 04/10/17 [Last Taken 1 Week Ago ~] Hydralazine HCl [Apresoline 100 mg] 100 mg PO TID 04/10/17 [Last Taken 11/02/17] LORazepam [Ativan (*)] 0.25 - 0.5 mg PO HS PRN 04/10/17 [Last Taken 11/01/17] Lisinopril [Zestril 40 mg (*)] 40 mg PO DAILY 04/10/17 [Last Taken 11/02/17] Montelukast Sodium [Singulair 10 mg (*)] 10 mg PO HS 04/10/17 [Last Taken ] Simvastatin [Zocor] 20 mg PO HS 04/10/17 [Last Taken 11/01/17] Terazosin HCl 10 mg PO HS 04/10/17 [Last Taken 11/01/17] Vitamin B Complex [B Complex] 1 ea PO DAILY 04/10/17 [Last Taken 1 Week Ago ~11/12] Docusate Sodium [Colace 100 MG (*)] 200 mg PO BID 04/20/17 [Last Taken 11/01/17] [place]-3 Fatty Acids [Fish Oil 1000 mg (*)] 1,000 mg PO DAILY 04/20/17 [Last Taken 1 Week Ago ~10/26/17] Ascorbic Acid [Vitamin C 500 mg (*)] 500 mg PO BID 10/02/17 [Last Taken 1 Week Ago ~10/26/17] Calcium Carbonate [Tums 500MG (*)] 500 mg PO DAILY PRN 10/02/17 [Last Taken 1 Week Ago ~10/26/17] Calcium Citrate W/Vit D [Citracal + D] 630 mg PO BID 10/02/17 [Last Taken 1 Week Ago ~10/26/17] Cetirizine [ZyrTEC 10 mg (*)] 10 mg PO DAILY PRN 10/02/17 [Last Taken Unknown] Diclofenac Sodium 1% [Voltaren Gel (*)] 1 olivia TP BID 10/02/17 [Last Taken ] Famotidine [Pepcid 20 MG (*)] 20 mg PO DAILY PRN 10/02/17 [Last Taken 11/02/17] Gemfibrozil [Lopid 600 MG (*)] 600 mg PO BIDAC 10/02/17 [Last Taken 11/01/17] Glucosam/Chondr/Collagn/Hyalur [Glucosamine & Chondroitin Cap] 1 each PO BID 06/11 [Last Taken 1 Week Ago ~10/26/17] Ibuprofen [Motrin (*)] 600 mg PO DAILY PRN 10/02/17 [Last Taken Unknown] Modafinil [Provigil 100 mg (*)] 50 mg PO DAILY PRN 10/02/17 [Last Taken 11/01/17 ] metFORMIN HCL [Glucophage 500 mg (*)] 1,000 mg PO BIDMEAL 10/02/17 [Last Taken 11/01/17] traMADol [Ultram 50 mg (*)] 100 mg PO QID 10/02/17 [Last Taken 11/02/17] Acetaminophen [Tylenol 325mg (*)] 650 mg PO Q6HRS tab 11/03/17 [Last Taken Unknown] Aspirin [Aspirin 81mg (*)] 81 mg PO BID tab.chew 11/03/17 [Last Taken Unknown] Ferrous Sulfate [Slow Fe 140 MG (*)] 140 mg PO DAILY tab.er 11/03/17 [Last Taken Unknown] oxyCODONE IR [Oxycodone Ir (*)] 5 - 10 mg PO Q3HRS PRN tab 11/03/17 [Last Taken Unknown] Discharge Medications: Refer to the Discharge Home Medication list for PRN reason. - Orders Services needed: Home Care, Registered Nurse, Physical Therapy, Occupational Therapy Home Care Face to Face: I certify that this patient was under my care and that I had the required [id number] encounter meeting the encounter requirements on the discharge day. My findings support the fact that the patient is homebound as defined in Home Care Face to Face Continued: CMS Chapter 7 Medicare Benefits Manual 30.1.1 , The condition of the patient is such that there exists a normal inability to leave home and consequently, leaving home would require a considerable and taxing effort. Oxygen: home oxygen as ordered (2 liters); follow-up with PCP within 1 week Diet Recommendation: no restrictions on diet Diet Texture: Regular Texture Diet Kennedy Stockings Discontinue Date: continue KENNEDY hose until ambulating 100 yards 3xs /day Wound Care Instructions: keep incision clean and dry Sutures/[place] Site: will remove at post-op visit Activity/Weight Bearing Restrictions: weight bearing as tolerated. no knee flexion beyond 60 degrees - Follow Up Care Current Providers and Referrals: Ivon Chen MD [Primary Care Provider] -
[2017-11-03 15:58] VITALS: BP 120/64; PULSE 74; TEMP 98.4
--- NOTE | 2017-11-03 17:12 | ASMTCMCOM ---
CM Note CM Note Notes: Pt medically stable for d/c with family support and [facility] RN/PT/OT; orders sent in [employer]. Date Signed: 11/03/2017 05:12 PM Electronically Signed By:INDERJIT Nation
[2017-11-03 17:18] VITALS: RESP 20; O2SAT 83
--- NOTE | 2017-11-04 09:15 | ASDISCHSUM ---
Discharge Information Plan Status:Home with Home Health Medically Cleared to Leave: Discharge Date:11/03/2017 06:35 PM CM D/C Disposition:Home Health Service [facility] D/C Disposition:[id number] Projected Discharge Date:11/04/2017 11:00 AM Transportation at D/C:Family Discharge Delay Reason: Follow-Up Date:11/04/2017 11:00 AM Discharge Slot: Final Diagnosis: Placement Information Referral Type:*Home Health Care Services Referral ID:[id number] Provider Name:[facility] Address 1:[address] [address] Address 2: City:[place] Selection Factors: State:[place] Patient Contact Information Contact Name:MIHAI Relationship:Mother Address: Work Phone: City: [facility] Phone: [facility] Code: Email: Financial Information Financial Class:HMO and PPO Plans Primary Plan Desc:HMO OUT OF STATE Primary Plan Number:[id number] Secondary Plan Desc: Secondary Plan Number: Assessment Information CM Tank Cooper Assessment CJR Did you go to joint Answers: Yes class? CM Note CM Note Notes: Marianna recently had hip surgery and now she will be getting her right knee done. Marianna requested to have Myriam from [facility] for PT services. Marianna had home health care PT services with [facility] in the past and would like to use them again. Her mom is coming in to take care of her, but transportation will be an issue for the first few weeks. Marianna scored a 7 on the RAFT scale, meaning additional interventions are necessary. Date Signed: 10/23/2017 10:25 AM Electronically Signed By:Sara Gregory [facility] Progress Note CM Note CM Note Notes: Pt medically stable for d/c with family support and [facility] RN/PT/OT; orders sent in [employer]. Date Signed: 11/03/2017 05:12 PM Electronically Signed By:INDERJIT Nation Intervention Information Intervention Type:*Incorrect Registration Date of Service:11/02/2017 01:25 PM Patient Type:Inpatient Staff Member:CHERYL Hallman, Denies Hours: Discipline: Severity: Comment:
== END 2017-11-03 18:35 | disposition home health service (06) ==
LOC: F3N 05:55 → INTOOBSV 05:55 → F3N 13:31
PROVIDERS: ADMIT Orthopaedic Surgery; ATTEND Orthopaedic Surgery
PROC: 0SRC0JZ Replacement of Right Knee Joint with Synthetic Substitute, Open Approach (ICD-10-PCS; principal; 2017-11-02 07:15)
DX: M17.11 Unilateral primary osteoarthritis, right knee (principal)
CPT/HCPCS: 27447; 73560; 97110; 97116; 97161; 97165; 97535; G0378; C1713; J0171; J1100; J1170; J1885; J2250; J2405; J2704; J2795; J3010

== ENCOUNTER → 2018-06-17 | Outpatient (CLI) | payer OTHER | LOC: FIMAGING 11:20 | PROVIDERS: ATTEND Internal Medicine | DX: Z12.31 Encounter for screening mammogram for malignant neoplasm of breast (principal) ==

== ENCOUNTER 2018-12-15 01:48 | Emergency (ER) | payer BC ==
--- NOTE | 2018-12-15 02:25 | EDPHY ---
H & P Stated Complaint: palpitations starting at 0020, hx a fib, self converted enroute to ED Time Seen by Provider: 12/15/18 01:53 HPI/ROS: Chief Complaint: Palpitations HPI: 63-year-old woman with a history of paroxysmal atrial fibrillation, on Eliquis. Patient began having palpitations and racing heartbeat at about 12 20 this morning. Symptoms lasted for at least half an hour before she called EMS. On EMS arrival they noted that she was in atrial fibrillation with a rapid ventricular response. On route he began feeling better feels that she is in a normal rhythm again. She did not have any chest pain. No shortness of breath. No recent illness. No nausea or vomiting. Symptoms similar to the prior to episodes that she has had in the last year. No nausea or vomiting. Currently is without complaint ROS: 10 systems were reviewed and were negative except those elements noted in the HPI. PMH: Atrial fibrillation, diabetes, hypertension Social History: No smoking, no alcohol, no recreational drug use Family History: non-contributory Physical Exam: Gen: Awake, Alert, No Distress HEENT: Nose: no rhinorrhea Eyes: PERRLA, EOMI Mouth: Moist mucosa Neck: Supple, no JVD Chest: nontender, lungs clear to auscultation Heart: S1, S2 normal, no murmur Abd: Soft, non-tender, no guarding Back: no CVA tenderness, no midline tenderness Ext: no edema, non-tender Skin: no rash Neuro: CN II-XII intact, Sensation grossly intact, Strength 5/5 in bilateral upper and lower extremities - Personal History Current Tetanus/Diphtheria Vaccine: Unsure Current Tetanus Diphtheria and Acellular Pertussis (TDAP): Unsure Tetanus Vaccine Date: more then 10 y - Medical/Surgical History Hx Asthma: Yes Hx Chronic Respiratory Disease: No Hx Diabetes: Yes Hx Cardiac Disease: No Hx Renal Disease: No Hx Cirrhosis: No Hx Alcoholism: No Hx HIV/AIDS: No Hx Splenectomy or Spleen Trauma: No Other PMH: HTN, high cholesterol, sleep apnea w/CPAP, asthma, DM, hysterectomy. TKR on L, osteoarthritis, L hip fx with joi - Social History Smoking Status: Never smoked Constitutional: Initial Vital Signs Temperature (C) 36.7 C 12/15/18 01:52 Heart Rate 106 H 12/15/18 01:52 Respiratory Rate 20 12/15/19 01:52 Blood Pressure 165/92 H 12/15/18 01:52 O2 Sat (%) 93 12/15/18 01:52 O2 Delivery Mode Room Air Allergies/Adverse Reactions: cephalexin [Cephalexin] Allergy (Mild, Verified 12/15/18 01:50) erythema multiforme hydrochlorothiazide Allergy (Mild, Verified 12/15/18 01:50) Rash Thiazides Allergy (Verified 12/15/18 01:50) diazides Allergy (Uncoded 12/15/18 01:50) Home Medications: Medication Instructions Recorded Albuterol [Proventil Inhaler HFA 2 inh IH Q6 PRN 04/10/17 (*)] Atenolol [Tenormin 100 mg (*)] 100 mg PO HS 04/10/17 Eflornithine HCl [Vaniqa] 1 olivia TP BID 04/10/17 FLUTICASONE/SALMETEROL [ADVAIR HFA 2 inh IH BID 04/10/17 230-21 MCG INHALER] Furosemide [Lasix 40 MG (*)] 40 mg PO DAILY 04/10/17 Herbals/Supplements -Info Only 1 each AD 04/10/17 Hydralazine HCl [Apresoline 100 mg] 100 mg PO TID 04/10/17 LORazepam [Ativan (*)] 0.25 - 0.5 mg PO HS PRN 04/10/17 Lisinopril [Zestril 40 mg (*)] 40 mg PO DAILY 04/10/17 Montelukast Sodium [Singulair 10 10 mg PO HS 04/10/17 mg (*)] Simvastatin [Zocor] 20 mg PO HS 04/10/17 Terazosin HCl 10 mg PO HS 04/10/17 Vitamin B Complex [B Complex] 1 ea PO DAILY 04/10/17 Docusate Sodium [Colace 100 MG (*)] 200 mg PO BID 04/20/17 Angie-3 Fatty Acids [Fish Oil 1000 1,000 mg PO DAILY 04/20/17 mg (*)] Ascorbic Acid [Vitamin C 500 mg 500 mg PO BID 10/02/17 (*)] Calcium Carbonate [Tums 500MG (*)] 500 mg PO DAILY PRN 10/02/17 Calcium Citrate W/Vit D [Citracal 630 mg PO BID 10/02/17 + D] Cetirizine [ZyrTEC 10 mg (*)] 10 mg PO DAILY PRN 10/02/17 Diclofenac Sodium 1% [Voltaren Gel 1 olivia TP BID 10/02/17 (*)] Famotidine [Pepcid 20 MG (*)] 20 mg PO DAILY PRN 10/02/17 Gemfibrozil [Lopid 600 MG (*)] 600 mg PO BIDAC 10/02/17 Glucosam/Chondr/Collagn/Hyalur 1 each PO BID 10/02/17 [Glucosamine & Chondroitin Cap] Ibuprofen [Motrin (*)] 600 mg PO DAILY PRN 10/02/17 Modafinil [Provigil 100 mg (*)] 50 mg PO DAILY PRN 10/02/17 metFORMIN HCL [Glucophage 500 mg 1,000 mg PO BIDMEAL 10/02/17 (*)] traMADol [Ultram 50 mg (*)] 100 mg PO QID 10/02/17 Acetaminophen [Tylenol 325mg (*)] 650 mg PO Q6HRS tab 11/03/17 Aspirin [Aspirin 81mg (*)] 81 mg PO BID tab.chew 11/03/17 Ferrous Sulfate [Slow Fe 140 MG] 140 mg PO DAILY tab.er 11/03/17 oxyCODONE IR [Oxycodone Ir (*)] 5 - 10 mg PO Q3HRS PRN tab 11/03/17 Medical Decision Making - Diagnostics EKG Interpretation: ECG time 1:54 a.m., sinus tachycardia with a rate of 104, anterior Q-waves and inferior Q-waves consistent with old infarcts, no acute changes. ED Course/Re-evaluation: 63-year-old woman with a history of paroxysmal atrial fibrillation had an episode this morning. Upon arrival the emergency department she is in sinus rhythm. She is symptom-free. She is anticoagulated on Eliquis. Plan will be for discharge with follow-up with [facility] [facility]. - Data Points Laboratory Results: 12/15/18 12/15/18 02:00 02:00 WBC Pending RBC Pending Hgb Pending Hct Pending MCV Pending MCH Pending MCHC Pending RDW Pending Plt Count Pending MPV Pending Neut % (Auto) Pending Lymph % (Auto) Pending [place] % (Auto) Pending Eos % (Auto) Pending Baso % (Auto) Pending Nucleat RBC Rel Count Pending Absolute Neuts (auto) Pending Absolute Lymphs (auto) Pending Absolute Monos (auto) Pending Absolute Eos (auto) Pending Absolute Basos (auto) Pending Absolute Nucleated RBC Pending Immature Gran % Pending Immature Gran # Pending Sodium Pending Potassium Pending Chloride Pending Carbon Dioxide Pending Anion Gap Pending BUN Pending Creatinine Pending Estimated GFR Pending Glucose Pending Calcium Pending Departure - Departure Disposition: Home, Routine, Self-Care Clinical Impression: Atrial fibrillation Condition: Good Instructions: A-fib (Atrial Fibrillation) (ED) Additional Instructions: Follow up with [employer] [facility] in 3-4 days for further evaluation. Return to the emergency department for chest pain, fainting, shortness of breath , or any other concerns. Referrals: Patient,NotPresent [Primary Care Provider] - As per Instructions
[2018-12-15 02:26] LABS: PLATELET COUNT 329 10^3/uL (150-400)
[2018-12-15 03:03] VITALS: BP 165/76
--- NOTE | 2018-12-16 03:17 | CPEKG ---
Test Reason : OPEN Blood Pressure : / mmHG Vent. Rate : 104 BPM Atrial Rate : 104 BPM P-R Int : 179 ms QRS Dur : 090 ms QT Int : 361 ms P-R-T Axes : 020 -30 028 degrees QTc Int : 475 ms Sinus tachycardia Probable left atrial enlargement Inferior infarct, old Anterior infarct, old Confirmed by Grey Espinoza ([id number] on 12/16/2018 3:16:42 AM Referred By: Grey Espinoza Confirmed By:Grey Espinoza
== END 2018-12-15 03:02 | disposition home or self-care (01) ==
LOC: EDUNIT#
DX: I48.91 Unspecified atrial fibrillation (principal); E11.9 Type 2 diabetes mellitus without complications; I10 Essential (primary) hypertension

== ENCOUNTER → 2019-01-19 | Outpatient (CLI) | payer BC | LOC: BRMIMAGING 13:15 | PROVIDERS: ATTEND Internal Medicine | DX: N63.20 Unspecified lump in the left breast, unspecified quadrant (principal) | CPT/HCPCS: 76641-PO ==

== ENCOUNTER → 2019-03-22 | Outpatient (CLI) | payer BC | LOC: BMCIMAGING 09:14 ==